=== PATIENT | female | born 1955 ===

== ENCOUNTER 2016-11-16 10:51 | Emergency (ER) | payer MEDICAID ==
[2016-11-16 11:08] VITALS: BMI 28.3
[2016-11-16 11:13] VITALS: TEMP 98.5; O2SAT 97
--- NOTE | 2016-11-16 11:46 | ED PDOC ---
Arrival/HPI - General Chief Complaint: Abdominal Pain Time Seen by Provider: 11/16/16 11:24 Historian: Patient - History of Present Illness Narrative History of Present Illness (Text): 11/16/16 11:35 A 61 year old female, whose past medical history includes Diverticulitis, Endoscopy/Colonoscopy, and RA, presents to the emergency room with complaints of abdominal pain for 3 months and left knee pain for over 1 month. Patient describes the abdominal pain as a sensation of "inflammation." Patient states that she takes Aspirin with no relief. Patient denies any chest pain, shortness of breath, fever, nausea, vomiting, diarrhea, or any other complaints. PMD: Dr. Valentin Time/Duration: > month (1 month) Symptom Onset: Sudden Symptom Course: Unchanged Quality: Pressure Severity Level: Moderate Activities at Onset: Light Context: Home Past Medical History - Provider Review Nursing Documentation Reviewed: Yes - Infectious Disease Hx of Infectious Diseases: None - Past Medical History Past Medical History: No Previous - Cardiac Hx Cardiac Disorders: Yes - Pulmonary Hx Respiratory Disorders: No - Neurological Hx Neurological Disorder: No - HEENT Hx HEENT Disorder: No - Renal Hx Renal Disorder: No - Endocrine/Metabolic Hx Endocrine Disorders: No - Hematological/Oncological Hx Blood Disorders: No - Integumentary Hx Dermatological Disorder: No - Musculoskeletal/Rheumatological Hx Musculoskeletal Disorders: Yes Hx Rheumatoid Arthritis: Yes - Gastrointestinal Hx Gastrointestinal Disorders: Yes Hx Diverticulitis: Yes - Genitourinary/Gynecological Hx Genitourinary Disorders: No - Psychiatric Hx Psychophysiologic Disorder: No Hx Substance Use: No - Surgical History Hx Section: Yes - Anesthesia Hx Anesthesia: Yes Hx Anesthesia Reactions: No Hx Malignant Hyperthermia: No - Suicidal Assessment Feels Threatened In Home Enviroment: No Family/Social History - Physician Review Nursing Documentation Reviewed: Yes Family/Social History: No Known Family HX Smoking Status: Never Smoked Hx Alcohol Use: No Hx Substance Use: No Hx Substance Use Treatment: No Allergies/Home Meds Allergies/Adverse Reactions: Allergies No Known Allergies Allergy (Verified 11/16/16 11:08) Home Medications: Home Meds Medication Instructions Recorded Confirmed Ergocalciferol (Vitamin D2) 11/16/16 [Vitamin D] Review of Systems - Physician Review All systems were reviewed & negative as marked: Yes - Review of Systems Respiratory: absent: SOB Cardiovascular: absent: Chest Pain Gastrointestinal: Abdominal Pain. absent: Diarrhea, Nausea, Vomiting Musculoskeletal: Other (Left knee pain) Physical Exam Vital Signs Reviewed: Yes Vital Signs Temp Pulse Resp BP Pulse Ox 11/16/16 17:00 64 18 133/68 97 11/16/16 15:39 66 18 135/71 97 11/16/16 14:12 69 18 138/75 97 11/16/16 12:25 75 18 142/79 97 11/16/16 11:08 98.5 F 79 16 146/85 97 Temperature: Afebrile Blood Pressure: Normal Pulse: Regular Respiratory Rate: Normal Appearance: Positive for: Well-Appearing, Non-Toxic, Comfortable Pain Distress: None Mental Status: Positive for: Alert and Oriented X 3 - Systems Exam Head: Present: Atraumatic, Normocephalic Conjunctiva: Present: Normal Mouth: Present: Moist Mucous Membranes Neck: Present: Normal Range of Motion Respiratory/Chest: Present: Clear to Auscultation, Good Air Exchange. No: Respiratory Distress, Accessory Muscle Use Cardiovascular: Present: Regular Rate and Rhythm, Normal S1, S2. No: Murmurs Abdomen: Present: Tenderness (Diffuse tenderness), Normal Bowel Sounds. No: Distention, Peritoneal Signs Upper Extremity: Present: Normal Inspection. No: Cyanosis, Edema Lower Extremity: Present: Normal Inspection, NORMAL PULSES, Normal ROM. No: Edema, CALF TENDERNESS, Tenderness, Swelling, Erythema, Deformity Neurological: Present: GCS=15, CN II-XII Intact, Speech Normal Skin: Present: Warm, Dry, Normal Color. No: Rashes Psychiatric: Present: Alert, Oriented x 3, Normal Insight, Normal Concentration Medical Decision Making ED Course and Treatment: 11/16/16 11:58 EKG: Ordered, reviewed, and independently interpreted the EKG. Rate : 70 BPM Rhythm : NSR Interpretation : Normal axis. No ischemia. 11/16/16 14:16 Left Knee X-ray Impression: As read by Dr. Lara, normal radiographs of the left knee. PROCEDURE: Left lower extremity venous US HISTORY: Leg pain and swelling. Evaluate for DVT. PHYSICIAN(S): Zackary Becerra MD. TECHNIQUE: Duplex sonography and color-flow Doppler with graded compression were used to evaluate the deep venous system of the left lower extremity. FINDINGS: The visualized deep venous system of the left lower extremity is sonographically normal and compressible. Normal wave forms and augmentation are seen. There is no sonographic evidence for deep venous thrombosis in the visualized segments of the left lower extremity. IMPRESSION: 1. No sonographic evidence for deep venous thrombosis in the visualized segments of the left lower extremity. Pt w chronic abd pain for months, no fever, no wbc count, benign exam. Disc plan for close f/u and rtr. - Lab Interpretations Lab Results: 11/16/16 12:20 11/16/16 12:20 Lab Results 11/16/16 12:20: WBC 5.1 D, RBC 4.34, Hgb 12.9, Hct 38.8, MCV 89.4, MCH 29.7, MCHC 33.2, RDW 13.6, Plt Count 243, MPV 10.5, Gran % 47.3 L, Lymph % (Auto) 40.0 H, Lassen % (Auto) 8.7 H, Eos % (Auto) 3.2, Baso % (Auto) 0.8, Gran # 2.40, Lymph # 2.0, Lassen # 0.4, Eos # 0.2, Baso # 0.04, Sodium 141, Potassium 3.9, Chloride 101, Carbon Dioxide 30, Anion Gap 14, BUN 14, Creatinine 0.6, Est GFR ( Amer) > 60, Est GFR (Non-Af Amer) > 60, Random Glucose 95, Calcium 9.6, Total Bilirubin 0.5, AST 27, ALT 59 H, Alkaline Phosphatase 95, Troponin I < 0.01, Total Protein 7.7, Albumin 4.3, Globulin 3.4, Albumin/Globulin Ratio 1.3, Lipase 97 11/16/16 12:00: Urine Color Yellow, Urine Appearance Clear, Urine pH 6.5, Ur Specific Lavina <= 1.005, Urine Protein Negative, Urine Glucose (UA) Negative, Urine Ketones Negative, Urine Blood Negative, Urine Nitrate Negative, Urine Bilirubin Negative, Urine Urobilinogen 0.2, Ur Leukocyte Esterase Negative I have reviewed the lab results: Yes - RAD Interpretation Radiology Orders: 11/16/16 11:44 KNEE LEFT 2 VIEWS (AP & LAT) [RAD] Stat 11/16/16 14:14 DUPLEX LOWER EXTRM VEIN LEFT [US] Stat - Medication Orders Current Medication Orders: Discontinued Medications Ketorolac Tromethamine (Toradol) 10 mg IVP STAT STA Stop: 11/16/16 11:45 Last Admin: 11/16/16 13:13 Dose: 10 MG IVP Administration Document 11/16/16 13:13 (Rec: 11/16/16 13:14 [id number]) Charges for Administration # of IVP Administrations 1 - Scribe Statement The provider has reviewed the documentation as recorded by the Scribe Juvenal Landers All medical record entries made by the Scribe were at my direction and personally dictated by me. I have reviewed the chart and agree that the record accurately reflects my personal performance of the history, physical exam, medical decision making, and the department course for this patient. I have also personally directed, reviewed, and agree with the discharge instructions and disposition. Disposition/Present on Arrival - Present on Arrival Any Indicators Present on Arrival: No History of DVT/PE: No History of Uncontrolled Diabetes: No Urinary Catheter: No History of Decub. Ulcer: No History Surgical Site Infection Following: None - Disposition Have Diagnosis and Disposition been Completed?: Yes Diagnosis: Abdominal pain, Knee pain Disposition: HOME/ ROUTINE Disposition Time: 16:52 Condition: STABLE Additional Instructions: Please follow up with your doctor this week. Return to the ER for any worsening symptoms or for any other concerns. Prescriptions: Naproxen [Naprosyn] 500 mg PO Q12H PRN #10 tablet PRN Reason: Pain, Moderate (4-7) Referrals: Helena Gracia MD [Primary Care Provider] - Follow up with primary
[2016-11-16 12:28] LABS: ADD MANUAL DIFF? NO
[2016-11-16 12:29] VITALS: RESP 18
[2016-11-16 12:30] LABS: PH,URINE 6.5 (4.7-8.0); URINE BILIRUBIN NEGATIVE (NEGATIVE); URINE BLOOD NEGATIVE (NEGATIVE); URINE GLUCOSE (UA) NEGATIVE (NEGATIVE); URINE KETONE NEGATIVE (NEGATIVE); URINE LEUKOCYTE ESTERASE NEGATIVE Leu/uL (NEGATIVE); URINE PROTEIN NEGATIVE mg/dL (<30 mg/dL); URINE UROBILINOGEN 0.2 E.U./dL (<1 E.U./dL)
[2016-11-16 12:31] LABS: URINE APPEARANCE CLEAR (CLEAR); URINE COLOR YELLOW (YELLOW)
[2016-11-16 12:31] LABS: BASO # 0.04 K/mm3 (0.0-2.0); BASO % 0.8 % (0.0-3.0); EOS # 0.2 (0.0-0.7); EOS % 3.2 % (1.5-5.0); GRAN % 47.3 % (50.0-68.0); HEMATOCRIT 38.8 % (36.0-48.0); MEAN CELL VOLUME 89.4 fL (80.0-105.0); MEAN CORPUSCULAR HEMOGLOBIN 29.7 pg (25.0-35.0); MEAN CORPUSCULAR HGB CONC 33.2 g/dl (31.0-37.0); MEAN PLATELET VOLUME 10.5 fl (7.0-11.0); MONO # 0.4 (0.1-0.6); MONO % 8.7 % (1.0-6.0); PLATELET COUNT 243 10^3/uL (120.0-450.0); RED CELL DISTRIBUTION WIDTH 13.6 % (11.5-14.5); WHITE BLOOD COUNT 5.1 10^3/ul (4.5-11.0)
[2016-11-16 12:42] LABS: ALB/GLOB RATIO 1.3 (1.1-1.8); ALKALINE PHOSPHATASE 95 U/L (38-133); ALT/SGPT 59 U/L (7-56); AST/SGOT 27 U/L (15-39); BILIRUBIN,TOTAL 0.5 mg/dL (0.2-1.3); BLOOD UREA NITROGEN 14 mg/dL (7-21); CALCIUM 9.6 mg/dL (8.4-10.5); CARBON DIOXIDE 30 mmol/L (21-33); CHLORIDE 101 mmol/L (98-107); GFR AFRICAN-AMERICAN > 60; GLUCOSE,RANDOM 95 mg/dL (70-110); LIPASE 97 U/L (23-300); POTASSIUM 3.9 mmol/L (3.6-5.0); SODIUM 141 mmol/L (132-148); TOTAL PROTEIN 7.7 g/dL (5.8-8.3)
[2016-11-16 12:53] LABS: TROPONIN I < 0.01 ng/mL
--- NOTE | 2016-11-16 13:13 | RAD ---
PROCEDURE: Left Knee Radiographs. HISTORY: Pain. COMPARISON: None. FINDINGS: BONES: Normal. No fracture. JOINTS: Normal. No osteoarthritis. JOINT EFFUSION: None. OTHER FINDINGS: None. IMPRESSION: Normal radiographs of the left knee.
--- NOTE | 2016-11-16 14:04 | CARD ---
APPROVED REPORT EKG Measurement Heart [id number] <Conclusion> Normal sinus rhythm NSSTW changes Mildly prolonged QTc.
--- NOTE | 2016-11-16 16:20 | US ---
PROCEDURE: Left lower extremity venous US HISTORY: Leg pain and swelling. Evaluate for DVT. PHYSICIAN(S): Zackary Becerra MD. TECHNIQUE: Duplex sonography and color-flow Doppler with graded compression were used to evaluate the deep venous system of the left lower extremity. FINDINGS: The visualized deep venous system of the left lower extremity is sonographically normal and compressible. Normal wave forms and augmentation are seen. There is no sonographic evidence for deep venous thrombosis in the visualized segments of the left lower extremity. IMPRESSION: 1. No sonographic evidence for deep venous thrombosis in the visualized segments of the left lower extremity.
[2016-11-16 17:22] VITALS: BP 133/68; PULSE 64
== END 2016-11-16 17:30 | disposition home or self-care (01) ==
LOC: ED 10:51
DX: R10.9 Unspecified abdominal pain (principal); M25.562 Pain in left knee; M06.9 Rheumatoid arthritis, unspecified
CPT/HCPCS: 73560; 80053; 81003; 83690; 84484; 85025; 93005; 93971; 96374; 99285; J1885

== ENCOUNTER 2017-03-26 12:50 | Emergency (ER) | payer MEDICAID ==
[2017-03-26 12:55] VITALS: BMI 28.7
[2017-03-26 12:58] VITALS: RESP 18; TEMP 98.7
[2017-03-26] MEDS ORDERED: Sodium Chloride 0.9% 1,000 ML IV STA (13:25)
--- NOTE | 2017-03-26 13:34 | ED PDOC ---
Arrival/HPI - General Chief Complaint: Abdominal Pain Time Seen by Provider: 03/26/17 13:13 Historian: Patient - History of Present Illness Narrative History of Present Illness (Text): 03/26/17 13:16 A 61 year old female, whose past medical history includes diverticulitis, presents to the emergency department complaining of abdominal pain for the past four days. Reports taking Tylenol, with minimal relief. Patient also reports neck pain and headache that developed today. Notes nausea, hematochezia and appetite changes, but denies any fever, vomiting or any other complaints at this time. PMD: Maria Del Carmen Herrera Time/Duration: < week Symptom Onset: Sudden Symptom Course: Unchanged Activities at Onset: Rest Context: Home Past Medical History - Provider Review Nursing Documentation Reviewed: Yes - Infectious Disease Hx of Infectious Diseases: None - Reproductive Menopause: Yes - Musculoskeletal/Rheumatological Hx Arthritis: Yes - Gastrointestinal Hx Diverticulitis: Yes - Psychiatric Hx Substance Use: No - Surgical History Hx Section: Yes (x2) Other/Comment: Colonoscopy - Anesthesia Hx Anesthesia: Yes Hx Anesthesia Reactions: No Hx Malignant Hyperthermia: No Family/Social History - Physician Review Nursing Documentation Reviewed: Yes Family/Social History: No Known Family HX Smoking Status: Never Smoked Hx Alcohol Use: No Hx Substance Use: No Allergies/Home Meds Allergies/Adverse Reactions: Allergies No Known Allergies Allergy (Verified 11/22/16 11:16) Home Medications: Home Meds Medication Instructions Recorded Confirmed Cholecalciferol [Vitamin D 1000 IU] 1 tab PO DAILY 03/26/17 03/26/17 Review of Systems - Physician Review All systems were reviewed & negative as marked: Yes - Review of Systems Constitutional: absent: Fevers Gastrointestinal: Abdominal Pain, Nausea, Appetite Changes, Hematochezia. absent: Vomiting Musculoskeletal: Neck Pain Neurological: Headache Physical Exam Vital Signs Reviewed: Yes Vital Signs Temp Pulse Resp BP Pulse Ox 03/26/17 15:05 68 18 124/75 97 03/26/17 14:10 71 18 126/78 97 03/26/17 12:58 98.7 F 76 18 128/89 96 Temperature: Afebrile Blood Pressure: Normal Pulse: Regular Respiratory Rate: Normal Appearance: Positive for: Well-Appearing, Non-Toxic, Comfortable Pain Distress: None Mental Status: Positive for: Alert and Oriented X 3 - Systems Exam Head: Present: Atraumatic, Normocephalic Pupils: Present: PERRL Extroacular Muscles: Present: EOMI Conjunctiva: Present: Normal Mouth: Present: Moist Mucous Membranes Neck: Present: Normal Range of Motion Respiratory/Chest: Present: Clear to Auscultation, Good Air Exchange. No: Respiratory Distress, Accessory Muscle Use Cardiovascular: Present: Regular Rate and Rhythm, Normal S1, S2. No: Murmurs Abdomen: Present: Tenderness (diffuse), Normal Bowel Sounds. No: Distention, Peritoneal Signs Back: Present: Normal Inspection Upper Extremity: Present: Normal Inspection. No: Cyanosis, Edema Lower Extremity: Present: Normal Inspection. No: Edema Neurological: Present: GCS=15, CN II-XII Intact, Speech Normal Skin: Present: Warm, Dry, Normal Color. No: Rashes Psychiatric: Present: Alert, Oriented x 3, Normal Insight, Normal Concentration Medical Decision Making ED Course and Treatment: 03/26/17 14:55 CT Abdomen and Pelvis with contrast Creator : Dima Mesa MD FINDINGS: LOWER THORAX: Unremarkable. LIVER: Unremarkable. No gross lesion or ductal dilatation. GALLBLADDER AND BILE DUCTS: Unremarkable. PANCREAS: Unremarkable. No gross lesion or ductal dilatation. SPLEEN: Unremarkable. ADRENALS: Unremarkable. No mass. KIDNEYS AND URETERS: Unremarkable. No hydronephrosis. No solid mass. VASCULATURE: Unremarkable. No aortic aneurysm. BOWEL: There is diverticulosis in the sigmoid and descending colon. There is some mural thickening. There is no inflammation to suggest acute diverticulitis. APPENDIX: Normal appendix. PERITONEUM: Unremarkable. No free fluid. No free air. LYMPH NODES: Unremarkable. No enlarged lymph nodes. BLADDER: Unremarkable. REPRODUCTIVE: Unremarkable. BONES: No acute fracture. IMPRESSION: Diverticulosis in the descending and sigmoid colon without evidence of diverticulitis. No acute intra-abdominal findings 03/26/17 14:57 Patient is resting comfortably, appears well and in no acute distress. I have discussed the results and plan with the patient, who expresses understanding. Patient in agreement with plan to be discharged home. Patient is stable for discharge. Patient was instructed to follow up with physician or return if symptoms worsen or new concerning symptoms arise. - Lab Interpretations Lab Results: 03/26/17 13:50 03/26/17 13:50 Lab Results 03/26/17 13:50: Sodium 141, Potassium 3.6, Chloride 104, Carbon Dioxide 27, Anion Gap 14, BUN 9, Creatinine 0.7, Est GFR ( Amer) > 60, Est GFR (Non- Af Amer) > 60, Random Glucose 89, Calcium 8.7, Total Bilirubin 0.4, AST 26, ALT 39, Alkaline Phosphatase 82, Total Protein 6.8, Albumin 4.2, Globulin 2.6, Albumin/Globulin Ratio 1.6, Lipase 56 03/26/17 13:50: Urine Color Yellow, Urine Appearance Clear, Urine pH 6.0, Ur Specific [place] 1.020, Urine Protein Negative, Urine Glucose (UA) Negative, Urine Ketones Negative, Urine Blood Negative, Urine Nitrate Negative, Urine Bilirubin Negative, Urine Urobilinogen 0.2, Ur Leukocyte Esterase Negative 03/26/17 13:50: WBC 6.6, RBC 4.35, Hgb 13.0, Hct 38.4, MCV 88.3, MCH 29.9, MCHC 33.9, RDW 13.8, Plt Count 249, MPV 10.2, Gran % 58.3, Lymph % (Auto) 30.6, [place] % (Auto) 8.4 H, Eos % (Auto) 2.1, Baso % (Auto) 0.6, Gran # 3.82, Lymph # 2.0, [place] # 0.6, Eos # 0.1, Baso # 0.04 I have reviewed the lab results: Yes - RAD Interpretation Radiology Orders: 03/26/17 13:25 ABD & PELVIS IV CONTRAST ONLY [CT] Stat - Medication Orders Current Medication Orders: Discontinued Medications Sodium Chloride (Sodium Chloride 0.9%) 1,000 mls @ 999 mls/hr IV .Q1H1M STA Stop: 03/26/17 14:25 Last Admin: 03/26/17 13:55 Dose: 999 mls/hr Iohexol (Omnipaque 350 100 Ml) Confirm Administered Dose 350 mg .ROUTE .STK-MED ONE Stop: 03/26/17 14:20 Ketorolac Tromethamine (Toradol) 10 mg IVP STAT STA Stop: 03/26/17 13:26 Last Admin: 03/26/17 13:55 Dose: 10 mg Ondansetron HCl (Zofran Inj) 4 mg IVP ONCE ONE Stop: 03/26/17 13:26 Last Admin: 03/26/17 13:56 Dose: 4 mg - Scribe Statement The provider has reviewed the documentation as recorded by the Alethae Garcia Provider Alethea Attestation: All medical record entries made by the Alethea were at my direction and personally dictated by me. I have reviewed the chart and agree that the record accurately reflects my personal performance of the history, physical exam, medical decision making, and the department course for this patient. I have also personally directed, reviewed, and agree with the discharge instructions and disposition. Disposition/Present on Arrival - Present on Arrival Any Indicators Present on Arrival: No History of DVT/PE: No History of Uncontrolled Diabetes: No Urinary Catheter: No History of Decub. Ulcer: No History Surgical Site Infection Following: None - Disposition Have Diagnosis and Disposition been Completed?: Yes Diagnosis: Abdominal pain Disposition: HOME/ ROUTINE Disposition Time: 14:58 Condition: STABLE Discharge Instructions (ExitCare): Acute Abdominal Pain (ED) Additional Instructions: Please follow up with your doctor. Return to the ER for any worsening symptoms or for any other concerns. Prescriptions: Ondansetron ODT [Zofran ODT] 4 mg PO Q4H PRN #10 odt PRN Reason: Nausea/Vomiting Referrals: Fabian Palacios MD [Primary Care Provider] - Follow up with primary Forms: [employer] (Arabic)
[2017-03-26 14:04] LABS: BASO # 0.04 K/mm3 (0.0-2.0); BASO % 0.6 % (0.0-3.0); EOS # 0.1 (0.0-0.7); EOS % 2.1 % (1.5-5.0); GRAN # 3.82 (1.4-6.5); GRAN % 58.3 % (50.0-68.0); HEMATOCRIT 38.4 % (36.0-48.0); LYMPH % 30.6 % (22.0-35.0); MEAN CELL VOLUME 88.3 fl (80.0-105.0); MEAN CORPUSCULAR HEMOGLOBIN 29.9 pg (25.0-35.0); MEAN CORPUSCULAR HGB CONC 33.9 g/dl (31.0-37.0); MEAN PLATELET VOLUME 10.2 fl (7.0-11.0); MONO # 0.6 (0.1-0.6); MONO % 8.4 % (1.0-6.0); RED CELL DISTRIBUTION WIDTH 13.8 % (11.5-14.5); URINE BILIRUBIN NEGATIVE (NEGATIVE); URINE BLOOD NEGATIVE (NEGATIVE); URINE GLUCOSE (UA) NEGATIVE (NEGATIVE); URINE KETONE NEGATIVE (NEGATIVE); URINE LEUKOCYTE ESTERASE NEGATIVE Leu/uL (NEGATIVE); URINE PROTEIN NEGATIVE mg/dL (<30 mg/dL); URINE UROBILINOGEN 0.2 E.U./dL (<1 E.U./dL); WHITE BLOOD COUNT 6.6 10^3/ul (4.5-11.0)
[2017-03-26 14:05] LABS: URINE APPEARANCE CLEAR (CLEAR); URINE COLOR YELLOW (YELLOW)
[2017-03-26 14:11] VITALS: O2SAT 97
[2017-03-26 14:13] LABS: ALB/GLOB RATIO 1.6 (1.1-1.8); ALKALINE PHOSPHATASE 82 U/L (38-133); ALT/SGPT 39 U/L (7-56); AST/SGOT 26 U/L (15-39); BILIRUBIN,TOTAL 0.4 mg/dL (0.2-1.3); BLOOD UREA NITROGEN 9 mg/dL (7-21); CALCIUM 8.7 mg/dL (8.4-10.5); CARBON DIOXIDE 27 mmol/L (21-33); CHLORIDE 104 mmol/L (98-107); GFR AFRICAN-AMERICAN > 60; GLUCOSE,RANDOM 89 mg/dL (70-110); LIPASE 56 U/L (23-300); POTASSIUM 3.6 mmol/L (3.6-5.0); SODIUM 141 mmol/L (132-148); TOTAL PROTEIN 6.8 g/dL (5.8-8.3)
[2017-03-26] MEDS ORDERED: Iohexol 350 MG/100 ML VIAL ONE (14:19)
--- NOTE | 2017-03-26 14:52 | CT ---
PROCEDURE: CT Abdomen and Pelvis with contrast HISTORY: abdominal pain COMPARISON: 10/19/2016 CT TECHNIQUE: Contrast dose: Radiation dose: Total exam DLP = 615 mGy-cm. This CT exam was performed using one or more of the following dose reduction techniques: Automated exposure control, adjustment of the mA and/or kV according to patient size, and/or use of iterative reconstruction technique. FINDINGS: LOWER THORAX: Unremarkable. LIVER: Unremarkable. No gross lesion or ductal dilatation. GALLBLADDER AND BILE DUCTS: Unremarkable. PANCREAS: Unremarkable. No gross lesion or ductal dilatation. SPLEEN: Unremarkable. ADRENALS: Unremarkable. No mass. KIDNEYS AND URETERS: Unremarkable. No hydronephrosis. No solid mass. VASCULATURE: Unremarkable. No aortic aneurysm. BOWEL: There is diverticulosis in the sigmoid and descending colon. There is some mural thickening. There is no inflammation to suggest acute diverticulitis. APPENDIX: Normal appendix. PERITONEUM: Unremarkable. No free fluid. No free air. LYMPH NODES: Unremarkable. No enlarged lymph nodes. BLADDER: Unremarkable. REPRODUCTIVE: Unremarkable. BONES: No acute fracture. OTHER FINDINGS: None. IMPRESSION: Diverticulosis in the descending and sigmoid colon without evidence of diverticulitis. No acute intra-abdominal findings
[2017-03-26 15:06] VITALS: BP 124/75; PULSE 68
== END 2017-03-26 15:15 | disposition home or self-care (01) ==
LOC: ED 12:50
DX: R10.9 Unspecified abdominal pain (principal)
CPT/HCPCS: 74177; 80053; 81003; 83690; 85025; 96361; 96374; 96375; 99284; J1885; J2405; J7040; Q9967

== ENCOUNTER 2017-04-16 19:53 | Emergency (ER) | payer MEDICAID ==
[2017-04-16 19:55] VITALS: BMI 29.5
[2017-04-16 20:00] VITALS: BP 142/87; PULSE 81; RESP 18; TEMP 98.7; O2SAT 96
--- NOTE | 2017-04-16 21:24 | ED PDOC ---
Arrival/HPI - General Chief Complaint: Abnormal Skin Integrity Time Seen by Provider: 04/16/17 20:24 Historian: Patient - History of Present Illness Narrative History of Present Illness (Text): 04/16/17 20:36 A 61 year old female, whose past medical history includes diverticulitis, presents to the emergency department complaining of diffused rashes for 4 days. Patient reports she is uncertain if she was exposed to anything new that may have caused the rashes. Patient notes experiencing itchiness, but denies of any fever, vomiting, abdominal pain, or any other complaints. PMD: Dr. Fabian Palacios Time/Duration: < week (4 days) Past Medical History - Provider Review Nursing Documentation Reviewed: Yes - Infectious Disease Hx of Infectious Diseases: None - Reproductive Menopause: Yes - Cardiac Hx Hypertension: Yes - Musculoskeletal/Rheumatological Hx Arthritis: Yes - Gastrointestinal Hx Diverticulitis: Yes - Psychiatric Hx Substance Use: No - Surgical History Hx Section: Yes (x2) Other/Comment: Colonoscopy - Anesthesia Hx Anesthesia: Yes Hx Anesthesia Reactions: No Hx Malignant Hyperthermia: No Family/Social History - Physician Review Nursing Documentation Reviewed: Yes Family/Social History: No Known Family HX Smoking Status: Never Smoked Hx Alcohol Use: No Hx Substance Use: No Allergies/Home Meds Allergies/Adverse Reactions: Allergies No Known Allergies Allergy (Verified 11/22/16 11:16) Home Medications: Home Meds Medication Instructions Recorded Confirmed Cholecalciferol [Vitamin D 1000 IU] 1 tab PO DAILY 03/26/17 04/16/17 Review of Systems - Physician Review All systems were reviewed & negative as marked: Yes - Review of Systems Constitutional: absent: Fevers Gastrointestinal: absent: Abdominal Pain, Vomiting Skin: Rash (bilateral arms and legs), Pruritis Physical Exam Vital Signs Reviewed: Yes Vital Signs Temp Pulse Resp BP Pulse Ox 04/16/17 19:53 98.7 F 81 18 142/87 96 Temperature: Afebrile Blood Pressure: Normal Pulse: Regular Respiratory Rate: Normal Appearance: Positive for: Well-Appearing Pain Distress: None Mental Status: Positive for: Alert and Oriented X 3 - Systems Exam Head: Present: Atraumatic, Normocephalic Pupils: Present: PERRL Extroacular Muscles: Present: EOMI Conjunctiva: Present: Normal Mouth: Present: Moist Mucous Membranes Neck: Present: Normal Range of Motion Respiratory/Chest: Present: Clear to Auscultation, Good Air Exchange. No: Respiratory Distress, Accessory Muscle Use Cardiovascular: Present: Regular Rate and Rhythm, Normal S1, S2. No: Murmurs Abdomen: Present: Normal Bowel Sounds. No: Tenderness, Distention, Peritoneal Signs Back: Present: Normal Inspection Upper Extremity: Present: Normal Inspection. No: Cyanosis, Edema Lower Extremity: Present: Normal Inspection. No: Edema Neurological: Present: GCS=15, CN II-XII Intact, Speech Normal Skin: Present: Other (lesions along both arms and legs) Psychiatric: Present: Alert, Oriented x 3, Normal Insight, Normal Concentration Medical Decision Making ED Course and Treatment: 04/16/17 20:44 Impression: 61 year old female with pruritic rashes bilateral arms and legs. Physical exam shows lesion along both arms and legs. Plan: -- Decadron -- Reassess and disposition Prior Visits: Notes and results from previous visits were reviewed. On 03/26/2017 patient came in complaining of abdominal pain. Patient was discharged home. Progress Notes: - Medication Orders Current Medication Orders: Discontinued Medications Dexamethasone (Decadron Inj) 10 mg IM STAT STA Stop: 04/16/17 20:43 Last Admin: 04/16/17 21:09 Dose: 10 mg - Scribe Statement The provider has reviewed the documentation as recorded by the Scribe Disposition/Present on Arrival - Present on Arrival Any Indicators Present on Arrival: No History of DVT/PE: No History of Uncontrolled Diabetes: No Urinary Catheter: No History of Decub. Ulcer: No History Surgical Site Infection Following: None - Disposition Have Diagnosis and Disposition been Completed?: Yes Diagnosis: Dermatitis Disposition: HOME/ ROUTINE Disposition Time: 20:30 Condition: GOOD Discharge Instructions (ExitCare): Dermatitis (ED) Additional Instructions: Thank you for letting us take care of you today. Your provider was Dr. Boucher. You were treated for dermatitis. The emergency medical care you received today was directed at your acute symptoms. If you were prescribed any medication, please fill it and take as directed. It may take several days for your symptoms to resolve. Return to the Emergency Department if your symptoms worsen, do not improve, or if you have any other problems. Please contact your doctor or call one of the physicians/clinics you have been referred to that are listed on the Patient Visit Information form that is included in your discharge packet. Bring any paperwork you were given at discharge with you along with any medications you are taking to your follow up visit. Our treatment cannot replace ongoing medical care by a primary care provider (PCP) outside of the emergency department. Thank you for allowing the [facility] team to be part of your care today. Follow up with your doctor in 2-3 days for re-evaluation and further management. Prescriptions: predniSONE [Prednisone] 40 mg PO DAILY #10 tab Referrals: Fabian Palacios MD [Primary Care Provider] - Follow up with primary
== END 2017-04-16 21:36 | disposition home or self-care (01) ==
LOC: ED 19:53
DX: L30.9 Dermatitis, unspecified (principal)
CPT/HCPCS: 96372; 99281; J1100

== ENCOUNTER 2017-06-10 20:25 | Emergency (ER) | payer MEDICAID ==
[2017-06-10 20:38] VITALS: BMI 29.2
[2017-06-10] MEDS ORDERED: Sodium Chloride 0.9% 1,000 ML IV STA (21:01)
[2017-06-10] MEDS ORDERED: Iohexol 240 (50 ml) ONE (21:22)
[2017-06-10 22:21] LABS: URINE BILIRUBIN NEGATIVE (NEGATIVE); URINE BLOOD NEGATIVE (NEGATIVE); URINE GLUCOSE (UA) NEGATIVE (NEGATIVE); URINE KETONE TRACE mg/dL (NEGATIVE); URINE LEUKOCYTE ESTERASE NEGATIVE Leu/uL (NEGATIVE); URINE PROTEIN NEGATIVE mg/dL (<30 mg/dL)
[2017-06-10 22:23] LABS: URINE APPEARANCE CLEAR (CLEAR); URINE COLOR YELLOW (YELLOW)
[2017-06-10 22:38] LABS: ALB/GLOB RATIO 1.4 (1.1-1.8); ALKALINE PHOSPHATASE 90 U/L (38-126); ALT/SGPT 32 U/L (7-56); AST/SGOT 30 U/L (14-36); BILIRUBIN,TOTAL 0.6 mg/dL (0.2-1.3); BLOOD UREA NITROGEN 17 mg/dL (7-21); CALCIUM 9.2 mg/dL (8.4-10.5); CARBON DIOXIDE 30 mmol/L (21-33); CHLORIDE 103 mmol/L (98-107); GFR AFRICAN-AMERICAN > 60; GLUCOSE,RANDOM 106 mg/dL (70-110); LIPASE 67 U/L (23-300); POTASSIUM 3.9 mmol/L (3.6-5.0); SODIUM 142 mmol/L (132-148); TOTAL PROTEIN 7.1 g/dL (5.8-8.3)
[2017-06-10 22:52] LABS: BASO # 0.02 K/mm3 (0.0-2.0); BASO % 0.3 % (0.0-3.0); EOS # 0.2 (0.0-0.7); EOS % 3.6 % (1.5-5.0); GRAN # 3.16 (1.4-6.5); GRAN % 51.3 % (50.0-68.0); HEMATOCRIT 39.5 % (36.0-48.0); LYMPH # 2.1 (1.2-3.4); LYMPH % 33.9 % (22.0-35.0); MEAN CELL VOLUME 90.6 fl (80.0-105.0); MEAN CORPUSCULAR HEMOGLOBIN 29.8 pg (25.0-35.0); MEAN CORPUSCULAR HGB CONC 32.9 g/dl (31.0-37.0); MEAN PLATELET VOLUME 10.8 fl (7.0-11.0); MONO # 0.7 (0.1-0.6); MONO % 10.9 % (1.0-6.0); WHITE BLOOD COUNT 6.2 10^3/ul (4.5-11.0)
[2017-06-10] MEDS ORDERED: Iohexol 350 MG/100 ML VIAL ONE (23:25)
--- NOTE | 2017-06-10 23:50 | ED PDOC ---
Arrival/HPI - General Chief Complaint: Abdominal Pain Time Seen by Provider: 06/10/17 20:46 Historian: Patient - History of Present Illness Narrative History of Present Illness (Text): 06/10/17 21:10 A 61 year old female, whose past medical history includes diverticulitis, presents to the emergency department complaining of mild abdominal pain for a week. Patient also reports several episodes of watery, nonbloody diarrhea. Denies any nausea, vomiting, fever, change in PO intake, dysuria, hematuria or any other complaints at this time. PMD: Dr. Palacios Time/Duration: 1 week Symptom Onset: Sudden Symptom Course: Unchanged Activities at Onset: Rest Context: Home Past Medical History - Provider Review Nursing Documentation Reviewed: Yes - Infectious Disease Hx of Infectious Diseases: None - Past Medical History Past Medical History: No Previous - Cardiac Hx Hypertension: Yes - Pulmonary Hx Respiratory Disorders: No - Neurological Hx Neurological Disorder: No - HEENT Hx HEENT Disorder: No - Renal Hx Renal Disorder: No - Endocrine/Metabolic Hx Endocrine Disorders: No - Hematological/Oncological Hx Blood Disorders: No - Integumentary Hx Dermatological Disorder: No - Musculoskeletal/Rheumatological Hx Arthritis: Yes - Gastrointestinal Hx Diverticulitis: Yes - Genitourinary/Gynecological Hx Genitourinary Disorders: No - Psychiatric Hx Psychophysiologic Disorder: No Hx Substance Use: No - Surgical History Hx Section: Yes (x2) Other/Comment: Colonoscopy - Anesthesia Hx Anesthesia: Yes Hx Anesthesia Reactions: No Hx Malignant Hyperthermia: No - Suicidal Assessment Feels Threatened In Home Enviroment: No Family/Social History - Physician Review Nursing Documentation Reviewed: Yes Family/Social History: No Known Family HX Smoking Status: Never Smoked Hx Alcohol Use: No Hx Substance Use: No Hx Substance Use Treatment: No Allergies/Home Meds Allergies/Adverse Reactions: Allergies No Known Allergies Allergy (Verified 06/10/17 20:38) Home Medications: Home Meds Medication Instructions Recorded Confirmed Ergocalciferol (Vitamin D2) 11/16/16 [Vitamin D] Cholecalciferol [Vitamin D 1000 IU] 1 tab PO DAILY 03/26/17 04/16/17 Review of Systems - Physician Review All systems were reviewed & negative as marked: Yes - Review of Systems Constitutional: absent: Fevers Gastrointestinal: Abdominal Pain, Diarrhea (watery, nonbloody). absent: Nausea , Vomiting Genitourinary Female: absent: Dysuria, Hematuria Physical Exam Vital Signs Reviewed: Yes Vital Signs Temp Pulse Resp BP Pulse Ox 06/11/17 02:14 18 98 06/11/17 01:49 98.1 F 80 17 119/89 99 06/10/17 20:38 98.2 F 85 17 116/75 98 06/10/17 20:37 98.2 F 85 17 116/75 98 Temperature: Afebrile Blood Pressure: Normal Pulse: Regular Respiratory Rate: Normal Appearance: Positive for: Well-Appearing, Non-Toxic, Comfortable Pain Distress: None Mental Status: Positive for: Alert and Oriented X 3 - Systems Exam Head: Present: Atraumatic, Normocephalic Pupils: Present: PERRL Extroacular Muscles: Present: EOMI Conjunctiva: Present: Normal Mouth: Present: Moist Mucous Membranes Neck: Present: Normal Range of Motion Respiratory/Chest: Present: Clear to Auscultation, Good Air Exchange. No: Respiratory Distress, Accessory Muscle Use Cardiovascular: Present: Regular Rate and Rhythm, Normal S1, S2. No: Murmurs Abdomen: Present: Tenderness (lower abdominal), Normal Bowel Sounds. No: Distention, Peritoneal Signs Back: Present: Normal Inspection Upper Extremity: Present: Normal Inspection. No: Cyanosis, Edema Lower Extremity: Present: Normal Inspection. No: Edema Neurological: Present: GCS=15, CN II-XII Intact, Speech Normal Skin: Present: Warm, Dry, Normal Color. No: Rashes Psychiatric: Present: Alert, Oriented x 3, Normal Insight, Normal Concentration Medical Decision Making ED Course and Treatment: 06/10/17 21:10 Impression: A 61 year old female with abdominal pain and diarrhea. Plan: -- CT abd/pelvis -- labs -- Urinalysis -- Pepcid, Zofran, IV fluids -- Reassess and disposition Prior Visits: Notes and results from previous visits were reviewed. Patient last reported to the emergency department on 04/16/17 for evaluation of diffuse rashes. Progress Notes: 06/11/17 01:23 Addendum created by Carmenza Stephenson MD on 06/11/2017 1:21 AM Eastern Time ([place] & [place]) CRITICAL RESULT: The study was personally discussed on the telephone with [Tavares Wolfe] on 06/11/2017 1:19 AM EDT. The results were understood and acknowledged. Initial Report created on 06/11/2017 1:08 AM Eastern Time ( & [place]) CT Abdomen and Pelvis With Intravenous Contrast IMPRESSION: 1. There is circumferential thickening of splenic flexure is seen on image 44 series 2 and on image 69 series 601 which can represent peristalsis versus underdistention. However an early annular constricting lesion secondary to colon cancer cannot be excluded.Correlation with clinical evaluation and further workup or followup as recommended by patient's clinical data. 2. There is thickening and inflammatory change around the mid left descending colon seen on image 87 through 94 series 2 representing early acute diverticulitis. No perforation or abscess. 3.Partially contracted gallbladder with mild gallbladder wall prominence and pericholecystic infiltration.If clinically warranted, a right upper quadrant ultrasound and correlation with LFTs may be helpful for further assessment. Dictated and Authenticated by: Carmenza Stephenson MD 06/11/2017 1:08 AM [facility] ([place] & [place]) 06/11/17 01:44 On re-evaluation, patient feels better and is in no acute distress. I have discussed the results and plan with the patient, who expresses understanding. Patient in agreement with plan to be discharged home. Patient is stable for discharge. Patient was instructed to follow up with physician or return if symptoms worsen or new concerning symptoms arise. - Lab Interpretations Lab Results: 06/10/17 22:15 06/10/17 22:15 Lab Results 06/10/17 22:15: Sodium 142, Potassium 3.9, Chloride 103, Carbon Dioxide 30, Anion Gap 13, BUN 17, Creatinine 0.8, Est GFR ( Amer) > 60, Est GFR (Non- Af Amer) > 60, Random Glucose 106, Calcium 9.2, Total Bilirubin 0.6, AST 30, ALT 32, Alkaline Phosphatase 90, Total Protein 7.1, Albumin 4.2, Globulin 2.9, Albumin/Globulin Ratio 1.4, Lipase 67 06/10/17 22:15: WBC 6.2, RBC 4.36, Hgb 13.0, Hct 39.5, MCV 90.6, MCH 29.8, MCHC 32.9, RDW 14.0, Plt Count 249, MPV 10.8, Gran % 51.3, Lymph % (Auto) 33.9, Taney % (Auto) 10.9 H, Eos % (Auto) 3.6, Baso % (Auto) 0.3, Gran # 3.16, Lymph # 2.1, Taney # 0.7 H, Eos # 0.2, Baso # 0.02 06/10/17 21:45: Urine Color Yellow, Urine Appearance Clear, Urine pH 6.0, Ur Specific [place] >= 1.030, Urine Protein Negative, Urine Glucose (UA) Negative, Urine Ketones Trace H, Urine Blood Negative, Urine Nitrate Negative, Urine Bilirubin Negative, Urine Urobilinogen 1.0 H, Ur Leukocyte Esterase Negative I have reviewed the lab results: Yes - RAD Interpretation Radiology Orders: 06/10/17 21:01 ABD PELVIS PO & IV CONTRAST [CT] Stat - Medication Orders Current Medication Orders: Discontinued Medications Ciprofloxacin (Cipro) 500 mg PO STAT STA PRN Reason: Protocol Stop: 06/11/17 01:45 Last Admin: 06/11/17 02:13 Dose: 500 mg Famotidine (Pepcid) 20 mg IVP STAT STA Stop: 06/10/17 21:02 Last Admin: 06/10/17 22:22 Dose: 20 mg IVP Administration Document 06/10/17 22:22 [email or web address] (Rec: 06/10/17 22:22 [email or web address] [id number]) Charges for Administration # of IVP Administrations 1 Sodium Chloride (Sodium Chloride 0.9%) 1,000 mls @ 100 mls/hr IV .Q10H STA Stop: 06/11/17 07:00 Last Admin: 06/10/17 22:22 Dose: 100 mls/hr eMAR Start Stop Document 06/10/17 22:22 [email or web address] (Rec: 06/10/17 22:22 [email or web address] [id number]) Intravenous Solution Start Date 06/10/17 Start Time 22:22 End Date 06/10/17 Metronidazole (Flagyl) 500 mg PO STAT STA PRN Reason: Protocol Stop: 06/11/17 01:45 Last Admin: 06/11/17 02:13 Dose: 500 mg Ondansetron HCl (Zofran Inj) 4 mg IVP STAT STA Stop: 06/10/17 21:02 Last Admin: 06/10/17 22:22 Dose: 4 mg IVP Administration Document 06/10/17 22:22 [email or web address] (Rec: 06/10/17 22:22 [email or web address] [id number]) Charges for Administration # of IVP Administrations 1 - Scribe Statement The provider has reviewed the documentation as recorded by the Scribe Sukhwinder Garcia All medical record entries made by the Scribe were at my direction and personally dictated by me. I have reviewed the chart and agree that the record accurately reflects my personal performance of the history, physical exam, medical decision making, and the department course for this patient. I have also personally directed, reviewed, and agree with the discharge instructions and disposition. Disposition/Present on Arrival - Present on Arrival Any Indicators Present on Arrival: No History of DVT/PE: No History of Uncontrolled Diabetes: No Urinary Catheter: No History of Decub. Ulcer: No History Surgical Site Infection Following: None - Disposition Have Diagnosis and Disposition been Completed?: Yes Diagnosis: Diverticulitis Disposition: HOME/ ROUTINE Disposition Time: 01:20 Condition: GOOD Discharge Instructions (ExitCare): Diverticulitis (ED) Additional Instructions: Thank you for letting us take care of you today. Your provider was Dr. Boucher. The emergency medical care you received today was directed at your acute symptoms. If you were prescribed any medication, please fill it and take as directed. It may take several days for your symptoms to resolve. Return to the Emergency Department if your symptoms worsen, do not improve, or if you have any other problems. Please contact your doctor or call one of the physicians/clinics you have been referred to that are listed on the Patient Visit Information form that is included in your discharge packet. Bring any paperwork you were given at discharge with you along with any medications you are taking to your follow up visit. Our treatment cannot replace ongoing medical care by a primary care provider (PCP) outside of the emergency department. Thank you for allowing the [facility] team to be part of your care today. Call your doctor tomorrow for a follow up appointment in the next 3-5 days. Take antibiotics as directed. Prescriptions: Ciprofloxacin [Cipro] 500 mg PO BID #14 tab metroNIDAZOLE [Flagyl] 500 mg PO Q8 #21 tab Referrals: Fabian Palacios MD [Primary Care Provider] - Follow up with primary Forms: [facility] (Nepali)
--- NOTE | 2017-06-11 01:09 | CT ---
EXAM: CT Abdomen and Pelvis With Intravenous Contrast CLINICAL HISTORY: 61 years old, female; Pain; Abdominal pain; Generalized; Additional info: Lower abdominal pain - h/o diverticulitis TECHNIQUE: Axial computed tomography images of the abdomen and pelvis with intravenous contrast. All CT scans at this facility use one or more dose reduction techniques, viz.: automated exposure control; ma/kV adjustment per patient size (including targeted exams where dose is matched to indication; i.e. head); or iterative reconstruction technique. 1086 images are submitted. 3 sets of Sagittal and coronal images are submitted in soft tissue and lung windows. Oral contrast was administered. Overlying clothing artifacts. MIP reconstruction images are submitted in lung windows. Coronal and sagittal reformatted images were created and reviewed. CONTRAST: 93 mL of OMNI 350 administered intravenously. COMPARISON: CT - ABD PELVIS IV CONTRAST ONLY 2015-12-01 17:49 FINDINGS: Lower thorax: No acute findings. ABDOMEN: Liver: Fatty liver. Gallbladder and bile ducts: Partially contracted gallbladder with mild gallbladder wall prominence and pericholecystic infiltration.If clinically warranted, a right upper quadrant ultrasound and correlation with LFTs may be helpful for further assessment. Pancreas: Unremarkable. No mass. No ductal dilation. Spleen: Unremarkable. No splenomegaly. Adrenals: Unremarkable. No mass. Kidneys and ureters: Unremarkable. No solid mass. No hydronephrosis. Stomach and bowel: There is circumferential thickening of splenic flexure is seen on image 44 series 2 and on image 69 series 601 which can represent peristalsis versus underdistention. However an early annular constricting lesion secondary to colon cancer cannot be excluded.Correlation with clinical evaluation and further workup or followup as recommended by patient's clinical data. There is thickening and inflammatory change around the mid left descending colon seen on image 87 through 94 series 2 representing early acute diverticulitis. Diverticulosis. Nonspecific gastric thickening likely due to under distention. Correlation with clinical data is recommended if gastritis is suspected. Appendix: Normal appendix. There is intraluminal contrast versus appendicolith. PELVIS: Bladder: Partially distended bladder. Reproductive: Uterus is anteriorly displaced likely due to adhesions versus uterine suspension. ABDOMEN and PELVIS: Intraperitoneal space: Unremarkable. No free air. No significant fluid collection. Bones/joints: No acute fracture. No dislocation. Soft tissues: There is a fat-containing umbilical hernia. There is radiopaque labial body piercing ring. Vasculature: Pelvic phleboliths. No abdominal aortic aneurysm. Lymph nodes: Unremarkable. No enlarged lymph nodes. IMPRESSION: 1. There is circumferential thickening of splenic flexure is seen on image 44 series 2 and on image 69 series 601 which can represent peristalsis versus underdistention. However an early annular constricting lesion secondary to colon cancer cannot be excluded.Correlation with clinical evaluation and further workup or followup as recommended by patient's clinical data. 2. There is thickening and inflammatory change around the mid left descending colon seen on image 87 through 94 series 2 representing early acute diverticulitis. No perforation or abscess. 3.Partially contracted gallbladder with mild gallbladder wall prominence and pericholecystic infiltration.If clinically warranted, a right upper quadrant ultrasound and correlation with LFTs may be helpful for further assessment.
[2017-06-11 01:50] VITALS: BP 119/89; PULSE 80; TEMP 98.1
[2017-06-11 02:15] VITALS: RESP 18; O2SAT 98
== END 2017-06-11 02:15 | disposition home or self-care (01) ==
LOC: ED 20:25
DX: K57.92 Diverticulitis of intestine, part unspecified, without perforation or abscess without bleeding (principal); I10 Essential (primary) hypertension
CPT/HCPCS: 74177; 80053; 81003; 83690; 85025; 87086; 96374; 96375; 99284; J2405; J7040; Q9966; Q9967

== ENCOUNTER 2017-10-14 19:02 | Emergency (ER) | payer MEDICAID ==
[2017-10-14 19:02] VITALS: BMI 29.2
--- NOTE | 2017-10-14 19:05 | ED PDOC ---
Arrival/HPI <Peter Barnett - Last Filed: 10/14/17 21:29> - General Historian: Patient <Slim Alvarez - Last Filed: 10/14/17 22:55> - General Time Seen by Provider: 10/14/17 19:04 - History of Present Illness Narrative History of Present Illness (Text): 10/14/17 19:04 62 y/o female, pmh including diverticulitis, nkda, c/o lower abdominal pain x 2 weeks. Aching pain, on and off, feels nausea, no chills or fever, no night sweat, no rash, no numbness or tingling, no pelvic, no flank pain, no other medical or psychological complaints. (Slim Alvarez) Past Medical History - Provider Review Nursing Documentation Reviewed: Yes - Infectious Disease Hx of Infectious Diseases: None - Past Medical History Past Medical History: No Previous - Cardiac Hx Hypertension: Yes - Pulmonary Hx Respiratory Disorders: No - Neurological Hx Neurological Disorder: No - HEENT Hx HEENT Disorder: No - Renal Hx Renal Disorder: No - Endocrine/Metabolic Hx Endocrine Disorders: No - Hematological/Oncological Hx Blood Disorders: No - Integumentary Hx Dermatological Disorder: No - Musculoskeletal/Rheumatological Hx Arthritis: Yes - Gastrointestinal Hx Diverticulitis: Yes - Genitourinary/Gynecological Hx Genitourinary Disorders: No - Psychiatric Hx Psychophysiologic Disorder: No Hx Substance Use: No - Surgical History Hx Section: Yes (x2) Other/Comment: Colonoscopy - Anesthesia Hx Anesthesia: Yes Hx Anesthesia Reactions: No Hx Malignant Hyperthermia: No - Suicidal Assessment Feels Threatened In Home Enviroment: No <Slim Alvarez - Last Filed: 10/14/17 22:55> Family/Social History - Physician Review Nursing Documentation Reviewed: Yes Family/Social History: Unknown Family HX Smoking Status: Never Smoked Hx Alcohol Use: No Hx Substance Use: No Hx Substance Use Treatment: No <Slim Alvarez - Last Filed: 10/14/17 22:55> Allergies/Home Meds <Peter Barnett - Last Filed: 10/14/17 21:29> <Slim Alvarez - Last Filed: 10/14/17 22:55> Allergies/Adverse Reactions: Allergies No Known Allergies Allergy (Verified 10/14/17 19:14) Home Medications: Home Meds Medication Instructions Recorded Confirmed Cholecalciferol [Vitamin D 1000 IU] 1 tab PO DAILY 03/26/17 10/14/17 predniSONE [Prednisone] 0 mg PO DAILY 10/14/17 10/14/17 Review of Systems - Review of Systems Constitutional: absent: Fatigue Eyes: absent: Vision Changes ENT: absent: Hearing Changes Respiratory: absent: SOB, Cough Cardiovascular: absent: Chest Pain Gastrointestinal: Abdominal Pain, Nausea. absent: Diarrhea, Vomiting Skin: absent: Rash Neurological: absent: Headache, Dizziness Psychiatric: absent: Anxiety, Depression, Suicidal Ideation <Slim Alvarez - Last Filed: 10/14/17 22:55> Physical Exam Vital Signs Reviewed: Yes Temperature: Afebrile Blood Pressure: Normal Pulse: Regular Respiratory Rate: Normal Appearance: Positive for: Well-Appearing, Non-Toxic, Comfortable Pain Distress: Mild Mental Status: Positive for: Alert and Oriented X 3 - Systems Exam Head: Present: Atraumatic, Normocephalic Pupils: Present: PERRL Extroacular Muscles: Present: EOMI Conjunctiva: Present: Normal Mouth: Present: Moist Mucous Membranes Neck: Present: Normal Range of Motion Respiratory/Chest: Present: Clear to Auscultation, Good Air Exchange. No: Respiratory Distress, Accessory Muscle Use Cardiovascular: Present: Regular Rate and Rhythm, Normal S1, S2. No: Murmurs Abdomen: Present: Tenderness (+ttp on the lt. sided abdominal region. ), Normal Bowel Sounds. No: Distention, Peritoneal Signs, Rebound, Guarding Back: Present: Normal Inspection Upper Extremity: Present: Normal Inspection. No: Cyanosis, Edema Lower Extremity: Present: Normal Inspection. No: Edema Neurological: Present: GCS=15, CN II-XII Intact, Speech Normal, Motor Func Grossly Intact, Gait Normal, Memory Normal Skin: Present: Warm, Dry, Normal Color. No: Rashes Psychiatric: Present: Alert, Oriented x 3, Normal Insight, Normal Concentration <Slim Alvarez - Last Filed: 10/14/17 22:55> Vital Signs Temp Pulse Resp BP Pulse Ox 10/14/17 19:54 99.0 F 10/14/17 19:10 99.9 F H 92 H 18 116/75 98 Medical Decision Making <Peter Barnett - Last Filed: 10/14/17 21:29> - RAD Interpretation Change Management Specialist: Radiologist <Slim Alvarez - Last Filed: 10/14/17 22:55> ED Course and Treatment: 10/14/17 19:32 -labs/ua -CT abdomen and pelvis -EKG -IVF/pepcid/zofran -observe and reassess 10/14/17 22:48 -EKG: NSR @ 78 BPM, no ST elevation or depression, no T wave inversion. -CT abdomen and pelvis show Descending colon diverticulitis, no abscess or free air -VBG with normal lactic acid. -Labs are non-significant -Temp repeated with no fever, no antipyretic given. Pt. feels better, tolerating po. -Cipro/flagyl and percocet ordered, tolerating po, discussed the side effect of flagyl and cipro which including but not limited to prolong QT causing cardiac arrymthia or achilles tendon rupture, pt. verbally expressed understanding and willing to accept the risk. -Discharge home with ciprofloxacin, flagyl, motrin, pepcid, bed rest, stay hydrated, follow up with your own pmd and GI within 2 days, return to the ER for any new or worsening signs or symptoms. (Slim Alvarez) - Lab Interpretations Lab Results: 10/14/17 20:15 10/14/17 20:15 Lab Results 10/14/17 21:43: Urine Color Yellow, Urine Appearance Clear, Urine pH 8.0, Ur Specific Leopold 1.015, Urine Protein Negative, Urine Glucose (UA) Negative, Urine Ketones Negative, Urine Blood Negative, Urine Nitrate Negative, Urine Bilirubin Negative, Urine Urobilinogen 0.2, Ur Leukocyte Esterase Negative 10/14/17 20:57: Influenza Typ A,B (EIA) Negative for flu a/b 10/14/17 20:15: WBC 8.7 D, RBC 4.42, Hgb 13.2, Hct 40.2, MCV 91.0, MCH 29.9, MCHC 32.8, RDW 13.5, Plt Count 249, MPV 11.2 H, Gran % 65.1, Lymph % (Auto) 22.8 , [place]field % (Auto) 9.9 H, Eos % (Auto) 1.7, Baso % (Auto) 0.5, Gran # 5.67, Lymph # (Auto) 2.0, [place]field # (Auto) 0.9 H, Eos # (Auto) 0.2, Baso # (Auto) 0.04 10/14/17 20:15: Sodium 144, Chloride 101, Potassium 3.9, Carbon Dioxide 32, Anion Gap 15, BUN 14, Creatinine 1.1, Est GFR ( Amer) > 60, Est GFR (Non- Af Amer) 50, Random Glucose 94, Calcium 10.3, Total Bilirubin 0.4, AST 31, ALT 38, Alkaline Phosphatase 78, Total Protein 7.8, Albumin 4.5, Globulin 3.3, Albumin/Globulin Ratio 1.3, Lipase 76 10/14/17 20:15: pO2 50, VBG pH 7.38, VBG pCO2 55.0, VBG HCO3 32.5 H, VBG Total CO2 34.2 H, VBG O2 Sat (Calc) 89.5 H, VBG Base Excess 5.8 H, VBG Potassium 3.9, Sodium 140.0, Chloride 104.0, Glucose 94, Lactate 1.1, FiO2 21.0, Venous Blood Potassium 3.9 - RAD Interpretation Radiology Orders: 10/14/17 19:29 ABD & PELVIS IV CONTRAST ONLY [CT] Stat 10/14/17 19:29 ABD & PELVIS IV CONTRAST ONLY [CT] Stat FINDINGS: Lower thorax: Heart size is normal. There is a small hiatal hernia. There is a calcified granuloma in the left base. There is minimal atelectasis/scarring. ABDOMEN: Liver: unremarkable Gallbladder and bile ducts: Gallbladder is collapsed.There is prominence of the common duct. Pancreas: Pancreas is mildly atrophic. Spleen: unremarkable Adrenals: unremarkable Kidneys and ureters: unremarkable Stomach and bowel: The stomach is distended with ingested material. Rotation is normal. There is no obstruction. Ileocecal region is unremarkable. Appendix and terminal ileum are unremarkable. There is moderate stool in the colon. There is diverticulosis. There is descending colon diverticulitis. There is inflammation and edema in pericolonic fat. Appendix: See stomach and bowel PELVIS: Bladder: unremarkable Reproductive: Uterine contours are mildly nodular. There is a small enhancing uterine mass with adjacent calcification.Adnexal structures are unremarkable. There is a labial ring. ABDOMEN and PELVIS: Intraperitoneal space: There is no free air. There is a small amount of fluid in the left colic gutter. There is no free fluid in the pelvis. Bones/joints: There are degenerative changes in the osseus structures. Soft tissues: There is a small fat containing umbilical hernia. Vasculature: There are multiple phleboliths. There are vascular calcifications. Lymph nodes: There is no pathologic adenopathy. IMPRESSION: Descending colon diverticulitis, no abscess or free air Additional nonemergent findings as described above. Thank you for allowing us to participate in the care of your patient. Dictated and Authenticated by: Kelly Chavarria MD 10/14/2017 10:43 PM Eastern Time ([place] & [place]) (Slim Alvarez) - Medication Orders Current Medication Orders: Ciprofloxacin (Cipro) 500 mg PO ONCE STA PRN Reason: Protocol Stop: 10/14/17 22:46 Sodium Chloride (Sodium Chloride 0.9%) 1,000 mls @ 100 mls/hr IV .Q10H FISH Last Admin: 10/14/17 20:22 Dose: 100 mls/hr eMAR Start Stop Document 10/14/17 20:22 HI (Rec: 10/14/17 20:23 HI [id number]) Intravenous Solution Start Date 10/14/17 Start Time 20:22 Oxycodone/Acetaminophen (Percocet 5/325 Mg Tab) 1 tab PO STAT STA Stop: 10/14/17 22:46 - PA / VICE PRESIDENT NETWORK / Resident Statement BRISA has reviewed & agrees with the documentation as recorded. <Peter Barnett - Last Filed: 10/14/17 21:29> - PA / VICE PRESIDENT NETWORK / Resident Statement BRISA has reviewed & agrees with the documentation as recorded. <Slim Alvarez - Last Filed: 10/14/17 22:55> Disposition/Present on Arrival <Peter Barnett - Last Filed: 10/14/17 21:29> - Present on Arrival Any Indicators Present on Arrival: No History of DVT/PE: No History of Uncontrolled Diabetes: No Urinary Catheter: No History of Decub. Ulcer: No History Surgical Site Infection Following: None - Disposition Have Diagnosis and Disposition been Completed?: Yes Disposition Time: 22:51 Patient Plan: Discharge <Slim Alvarez - Last Filed: 10/14/17 22:55> - Disposition Diagnosis: Diverticulitis Disposition: HOME/ ROUTINE Condition: IMPROVED Discharge Instructions (ExitCare): Diverticulitis Additional Instructions: -Discharge home with ciprofloxacin, flagyl, motrin, pepcid, bed rest, stay hydrated, follow up with your own pmd and GI within 2 days, return to the ER for any new or worsening signs or symptoms. Prescriptions: Ciprofloxacin/Ciprofloxa HCl [Ciprofloxacin] 500 mg PO BID #14 tab Famotidine [Pepcid] 20 mg PO BID #20 tab Ibuprofen [Motrin] 600 mg PO TID PRN #21 tab PRN Reason: Other metroNIDAZOLE [Flagyl] 500 mg PO TID #21 tab Referrals: Maria Del Carmen Herrera MD [Primary Care Provider] - Follow up with primary Tish Smith MD [Medical Doctor] - Follow up with primary [facility] [Outside] - Follow up with primary Forms: WORK NOTE
[2017-10-14] MEDS ORDERED: Sodium Chloride 0.9% 1,000 ML IV SCH (19:30)
[2017-10-14 19:54] VITALS: TEMP 99
[2017-10-14 20:38] LABS: VENOUS BLOOD GAS BASE EXCESS 5.8 mmol/L (0.0-2.0); VENOUS BLOOD GAS PO2 50 mm/Hg (30-55); VENOUS BLOOD PH 7.38 (7.32-7.43)
[2017-10-14 20:47] LABS: ALB/GLOB RATIO 1.3 (1.1-1.8); ALBUMIN 4.5 g/dL (3.0-4.8); ALT/SGPT 38 U/L (7-56); AST/SGOT 31 U/L (14-36); BLOOD UREA NITROGEN 14 mg/dL (7-21); CALCIUM 10.3 mg/dL (8.4-10.5); GFR AFRICAN-AMERICAN > 60; GFR NON-AFRICAN AMERICAN 50; LIPASE 76 U/L (23-300)
[2017-10-14 20:55] LABS: BASO # 0.04 K/mm3 (0.0-2.0); BASO % 0.5 % (0.0-3.0); EOS # 0.2 (0.0-0.7); EOS % 1.7 % (1.5-5.0); GRAN # 5.67 (1.4-6.5); GRAN % 65.1 % (50.0-68.0); HEMOGLOBIN 13.2 g/dL (12.0-16.0); LYMPH % 22.8 % (22.0-35.0); MEAN CORPUSCULAR HEMOGLOBIN 29.9 pg (25.0-35.0); MEAN CORPUSCULAR HGB CONC 32.8 g/dl (31.0-37.0); MEAN PLATELET VOLUME 11.2 fl (7.0-11.0); MONO # 0.9 (0.1-0.6); MONO % 9.9 % (1.0-6.0); RBC 4.42 10^6/uL (3.5-6.1); RED CELL DISTRIBUTION WIDTH 13.5 % (11.5-14.5); WHITE BLOOD COUNT 8.7 10^3/ul (4.5-11.0)
[2017-10-14] MEDS ORDERED: Iohexol 350 MG/100 ML VIAL ONE (21:14)
[2017-10-14 22:05] LABS: URINE BILIRUBIN NEGATIVE (NEGATIVE); URINE BLOOD NEGATIVE (NEGATIVE); URINE GLUCOSE (UA) NEGATIVE (NEGATIVE); URINE LEUKOCYTE ESTERASE NEGATIVE Leu/uL (NEGATIVE); URINE PROTEIN NEGATIVE mg/dL (<30 mg/dL); URINE UROBILINOGEN 0.2 E.U./dL (<1 E.U./dL)
[2017-10-14 22:13] LABS: URINE APPEARANCE CLEAR (CLEAR); URINE COLOR YELLOW (YELLOW)
--- NOTE | 2017-10-14 22:43 | CT ---
EXAM: CT Abdomen and Pelvis With Intravenous Contrast EXAM DATE/TIME: 10/14/2017 7:29 PM CLINICAL HISTORY: 62 years old, female; Pain; Abdominal pain; Localized; Left; Prior surgery; Surgery type: (2) c-sections; Additional info: Lt. Sided abdominal pain x 2 weeks TECHNIQUE: Axial computed tomography images of the abdomen and pelvis with intravenous contrast. All CT scans at this facility use one or more dose reduction techniques, viz.: automated exposure control; ma/kV adjustment per patient size (including targeted exams where dose is matched to indication; i.e. head); or iterative reconstruction technique. Coronal and sagittal reformatted images were created and reviewed. CONTRAST: 95 mL of OMNI 350 administered intravenously. COMPARISON: CT - ABD PELVIS PO IV CONTRAST 2017-06-11 00:03 FINDINGS: Lower thorax: Heart size is normal. There is a small hiatal hernia. There is a calcified granuloma in the left base. There is minimal atelectasis/scarring. ABDOMEN: Liver: unremarkable Gallbladder and bile ducts: Gallbladder is collapsed.There is prominence of the common duct. Pancreas: Pancreas is mildly atrophic. Spleen: unremarkable Adrenals: unremarkable Kidneys and ureters: unremarkable Stomach and bowel: The stomach is distended with ingested material. Rotation is normal. There is no obstruction. Ileocecal region is unremarkable. Appendix and terminal ileum are unremarkable. There is moderate stool in the colon. There is diverticulosis. There is descending colon diverticulitis. There is inflammation and edema in pericolonic fat. Appendix: See stomach and bowel PELVIS: Bladder: unremarkable Reproductive: Uterine contours are mildly nodular. There is a small enhancing uterine mass with adjacent calcification.Adnexal structures are unremarkable. There is a labial ring. ABDOMEN and PELVIS: Intraperitoneal space: There is no free air. There is a small amount of fluid in the left colic gutter. There is no free fluid in the pelvis. Bones/joints: There are degenerative changes in the osseus structures. Soft tissues: There is a small fat containing umbilical hernia. Vasculature: There are multiple phleboliths. There are vascular calcifications. Lymph nodes: There is no pathologic adenopathy. IMPRESSION: Descending colon diverticulitis, no abscess or free air Additional nonemergent findings as described above.
[2017-10-14] MEDS ORDERED: Oxycodone/Acetaminophen 5/325 mg Tab PO STA (22:45)
[2017-10-14 23:10] VITALS: BP 120/87; PULSE 80; RESP 16; O2SAT 99
--- NOTE | 2017-10-15 17:37 | CARD ---
APPROVED REPORT EKG Measurement Heart [id number] <Conclusion> Normal sinus rhythm Normal ECG
== END 2017-10-14 23:07 | disposition home or self-care (01) ==
LOC: ED 19:02
DX: K57.92 Diverticulitis of intestine, part unspecified, without perforation or abscess without bleeding (principal); I10 Essential (primary) hypertension
CPT/HCPCS: 74177; 80053; 81003; 82803; 83690; 85025; 87804; 93005; 99284; J7040; Q9967

== ENCOUNTER 2018-01-04 19:04 | Emergency (ER) | payer MEDICAID ==
[2018-01-04 19:04] VITALS: BMI 29.2
[2018-01-04 19:35] VITALS: TEMP 98.5
--- NOTE | 2018-01-04 20:09 | ED PDOC ---
Arrival/HPI - General Chief Complaint: Female Genitourinary Time Seen by Provider: 01/04/18 19:27 Historian: Patient - History of Present Illness Narrative History of Present Illness (Text): 01/04/18 19:51 A 62 year old female, whose past medical history includes hypertension, arthritis, diverticulosis, and diverticulitis, presents to the emergency department complaining of vaginal discharge for 2 days. Patient reports taking Monistate for discharge. Patient notes also experiencing couple days of dysuria , hematuria, and urinary frequency. Patient denies any vaginal bleeding, fever, chills, body aches, or any other complaints. No PMD Past Medical History - Provider Review Nursing Documentation Reviewed: Yes - Infectious Disease Hx of Infectious Diseases: None - Past Medical History Past Medical History: No Previous - Cardiac Hx Cardiac Disorders: Yes Hx Hypertension: Yes - Pulmonary Hx Respiratory Disorders: No - Neurological Hx Neurological Disorder: No - HEENT Hx HEENT Disorder: No - Renal Hx Renal Disorder: No - Endocrine/Metabolic Hx Endocrine Disorders: No - Hematological/Oncological Hx Blood Disorders: No - Integumentary Hx Dermatological Disorder: No - Musculoskeletal/Rheumatological Hx Musculoskeletal Disorders: Yes Hx Arthritis: Yes - Gastrointestinal Hx Gastrointestinal Disorders: Yes Hx Diverticulitis: Yes - Genitourinary/Gynecological Hx Genitourinary Disorders: No - Psychiatric Hx Psychophysiologic Disorder: No Hx Substance Use: No - Surgical History Hx Section: Yes (x2) Other/Comment: Colonoscopy - Anesthesia Hx Anesthesia: Yes Hx Anesthesia Reactions: No Hx Malignant Hyperthermia: No - Suicidal Assessment Feels Threatened In Home Enviroment: No Family/Social History - Physician Review Nursing Documentation Reviewed: Yes Family/Social History: No Known Family HX Smoking Status: Never Smoked Hx Alcohol Use: Yes Frequency of alcohol use: Socially Hx Substance Use: No Hx Substance Use Treatment: No Allergies/Home Meds Allergies/Adverse Reactions: Allergies No Known Allergies Allergy (Verified 10/14/17 19:14) Home Medications: Home Meds Medication Instructions Recorded Confirmed Cholecalciferol [Vitamin D 1000 IU] 1 tab PO DAILY 03/26/17 10/14/17 predniSONE [Prednisone] 0 mg PO DAILY 10/14/17 10/14/17 Review of Systems - Physician Review All systems were reviewed & negative as marked: Yes - Review of Systems Constitutional: absent: Fevers, Night Sweats Genitourinary Female: Dysuria, Frequency, Hematuria, Vaginal Discharge. absent : Vaginal Bleeding Musculoskeletal: absent: Myalgias Physical Exam Vital Signs Reviewed: Yes Vital Signs Temp Pulse Resp BP Pulse Ox 01/04/18 21:12 80 18 137/62 100 01/04/18 19:27 98.5 F 68 17 137/86 96 Temperature: Afebrile Blood Pressure: Normal Pulse: Regular Respiratory Rate: Normal Appearance: Positive for: Well-Appearing Pain Distress: None Mental Status: Positive for: Alert and Oriented X 3 - Systems Exam Abdomen: No: Tenderness, Distention, Peritoneal Signs Genitourinary/Pelvic Exam: Present: Normal External Genitalia, Vaginal Discharge (white thick discharge), Cervical os Closed, 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 No: Vaginal Bleeding, Vaginal Lesions, Adenexal Tenderness, Adenexal Mass, Cervical Motion Tendernes, Odor Back: No: CVA Tenderness Upper Extremity: Present: Normal Inspection. No: Cyanosis, Edema Lower Extremity: Present: Normal Inspection. No: Edema Neurological: Present: GCS=15, CN II-XII Intact, Speech Normal Skin: Present: Warm, Dry, Normal Color. No: Rashes Psychiatric: Present: Alert, Oriented x 3, Normal Insight, Normal Concentration Medical Decision Making ED Course and Treatment: 01/04/18 19:55 Impression: 62 year old female with vaginal dischagge, urinary frequency, dysuria, and hematuria. Physical exam shows normal abdomen exam; no CVA tenderness to back. Differential Diagnosis included but are not limited to: Vaginal Candidiasis vs. UTI Plan: -- Urine Culture -- Urinalysis -- Labs -- Reassess and disposition Prior Visits: Notes and results from previous visits were reviewed. Patient was last seen in the emergency department on 10/14/2017 for lower abdominal pain. Patient was discharged home. Progress Notes: 01/05/18 02:10 Treated with Diflucan for Vaginal Candidiasis and given Bactrim for UTI. Advised to follow up with primary care doctor in 2-3 days. - Lab Interpretations Lab Results: Lab Results 01/04/18 20:07: Urine Color Red, Urine Appearance Turbid, Urine pH 6.0, Ur Specific [place] >= 1.030, Urine Protein 100 H, Urine Glucose (UA) Negative, Urine Ketones Trace H, Urine Blood Large H, Urine Nitrate Positive H, Urine Bilirubin Negative, Urine Urobilinogen 0.2, Ur Leukocyte Esterase Large H, Urine RBC Tntc, Urine WBC Tntc, Ur Epithelial Cells 6 - 8, Urine Bacteria Many - Medication Orders Current Medication Orders: Discontinued Medications Fluconazole (Diflucan) 150 mg PO STAT STA PRN Reason: Protocol Stop: 01/04/18 20:53 Last Admin: 01/04/18 21:09 Dose: 150 mg Trimethoprim/Sulfamethoxazole (Bactrim Ds Tab) 1 tab PO STAT STA PRN Reason: Protocol Stop: 01/04/18 20:51 Last Admin: 01/04/18 21:10 Dose: 1 tab - Scribe Statement The provider has reviewed the documentation as recorded by the Alethea Dutta Provider Scribe Attestation: All medical record entries made by the Scribe were at my direction and personally dictated by me. I have reviewed the chart and agree that the record accurately reflects my personal performance of the history, physical exam, medical decision making, and the department course for this patient. I have also personally directed, reviewed, and agree with the discharge instructions and disposition. Disposition/Present on Arrival - Present on Arrival Any Indicators Present on Arrival: No History of DVT/PE: No History of Uncontrolled Diabetes: No Urinary Catheter: No History of Decub. Ulcer: No History Surgical Site Infection Following: None - Disposition Have Diagnosis and Disposition been Completed?: Yes Diagnosis: Yeast infection, UTI (urinary tract infection) Disposition: HOME/ ROUTINE Disposition Time: 21:00 Patient Plan: Discharge Condition: IMPROVED Discharge Instructions (ExitCare): Urinary Tract Infections in Adults, Yeast Infection (DC) Additional Instructions: Ms Arellano, thank you for letting us take care of you today. Your provider was Dr. Montejo. You were treated for UTI, Vaginal Candidiasis. The emergency medical care you received today was directed at your acute symptoms. If you were prescribed any medication, please fill it and take as directed. It may take several days for your symptoms to resolve. Return to the Emergency Department if your symptoms worsen, do not improve, or if you have any other problems. Please contact your doctor or call one of the physicians/clinics you have been referred to that are listed on the Patient Visit Information form that is included in your discharge packet. Bring any paperwork you were given at discharge with you along with any medications you are taking to your follow up visit. Our treatment cannot replace ongoing medical care by a primary care provider (PCP) outside of the emergency department. Thank you for allowing the [facility] team to be part of your care today. If you had an X-Ray or CT scan: A Radiologist will review the ED reading if any change in treatment is needed we will contact you. If you had a blood, urine, or wound culture: It will take several days for the results, if any change in treatment is needed we will contact you. If you had an STI test: It will take 48 hours for the results. Please call after 1 week if you have not heard back. Prescriptions: Sulfamethoxazole/Trimethoprim [Bactrim DS 800 mg-160 mg] 1 tab PO Q12 #6 tab Referrals: Rubens Jennings, [Primary Care Provider] - Follow up with primary Forms: [employer] (Sing[place]an), WORK NOTE
[2018-01-04 20:28] LABS: URINE APPEARANCE TURBID (CLEAR); URINE BILIRUBIN NEGATIVE (NEGATIVE); URINE BLOOD LARGE (NEGATIVE); URINE COLOR RED (YELLOW); URINE GLUCOSE (UA) NEGATIVE (NEGATIVE); URINE LEUKOCYTE ESTERASE LARGE Leu/uL (NEGATIVE); URINE PROTEIN 100 mg/dL (<30 mg/dL); URINE UROBILINOGEN 0.2 E.U./dL (<1 E.U./dL)
[2018-01-04 20:29] LABS: URINE BACTERIA MANY (NEG); URINE RBC TNTC /hpf (0-2); URINE WBC TNTC /hpf (0-6)
[2018-01-04] MEDS ORDERED: Tmp-Smz 800 mg-160 mg DS Tab PO STA (20:50)
[2018-01-04 21:13] VITALS: BP 137/62; PULSE 80; RESP 18; O2SAT 100
== END 2018-01-04 21:12 | disposition home or self-care (01) ==
LOC: ED 19:04
DX: I10 Essential (primary) hypertension (principal)

== ENCOUNTER 2018-02-27 19:01 | Emergency (ER) | payer MEDICAID ==
[2018-02-27 19:02] VITALS: BMI 29.2
[2018-02-27 19:14] VITALS: TEMP 98.7
[2018-02-27] MEDS ORDERED: Sodium Chloride 0.9% 1,000 ML IV STA (20:03)
--- NOTE | 2018-02-27 20:07 | ED PDOC ---
Arrival/HPI - General Chief Complaint: GI Problem Time Seen by Provider: 02/27/18 20:03 Historian: Patient - History of Present Illness Narrative History of Present Illness (Text): 02/27/18 20:04 This 62 yo female with pmh RA, diverticulosis, presents to this ED c/o RLQ and LLQ abdominal pain, diarrhea since early today. Patient denies sob, cp, nausea , vomiting, rectal bleeding , dizziness, or abnormal gait. Time/Duration: Other (see hpi) Context: Home Past Medical History - Provider Review Nursing Documentation Reviewed: Yes - Infectious Disease Hx of Infectious Diseases: None - Past Medical History Past Medical History: No Previous - Cardiac Hx Cardiac Disorders: Yes - Pulmonary Hx Respiratory Disorders: No - Neurological Hx Neurological Disorder: No - HEENT Hx HEENT Disorder: No - Renal Hx Renal Disorder: No - Endocrine/Metabolic Hx Endocrine Disorders: No - Hematological/Oncological Hx Blood Disorders: No - Integumentary Hx Dermatological Disorder: No - Musculoskeletal/Rheumatological Hx Musculoskeletal Disorders: Yes Hx Arthritis: Yes - Gastrointestinal Hx Gastrointestinal Disorders: Yes Hx Diverticulitis: Yes Other/Comment: RECENT COLONOSCOPY - Genitourinary/Gynecological Hx Genitourinary Disorders: Yes Hx Urinary Tract Infection: Yes - Psychiatric Hx Psychophysiologic Disorder: No Hx Substance Use: No - Surgical History Hx Section: Yes Other/Comment: COLONOSCOPY - Anesthesia Hx Anesthesia: Yes Hx Anesthesia Reactions: No Hx Malignant Hyperthermia: No - Suicidal Assessment Feels Threatened In Home Enviroment: No Family/Social History - Physician Review Nursing Documentation Reviewed: Yes Family/Social History: Other (noncontributory) Smoking Status: Never Smoked Hx Alcohol Use: No Hx Substance Use: No Hx Substance Use Treatment: No Allergies/Home Meds Allergies/Adverse Reactions: Allergies No Known Allergies Allergy (Verified 02/27/18 19:04) Home Medications: Home Meds Medication Instructions Recorded Confirmed Cholecalciferol (Vitamin D3) 2,000 iu PO DAILY 02/27/18 02/27/18 [Vitamin D3] Diclofenac Sodium [Voltaren] 1 applic TOP PRN PRN 02/27/18 02/27/18 Meloxicam [Mobic] 15 mg PO PRN PRN 02/27/18 02/27/18 Multivitamin Therapeutic Tab 1 tab PO DAILY 02/27/18 02/27/18 [Thera Tab] Omeprazole [Omeprazole] 40 mg PO DAILY 02/27/18 02/27/18 Review of Systems - Review of Systems Constitutional: Normal. absent: Fatigue, Weight Change, Fevers, Night Sweats Eyes: Normal ENT: Normal Respiratory: Normal. absent: SOB, Cough Cardiovascular: Normal. absent: Chest Pain, Palpitations Gastrointestinal: Abdominal Pain, Diarrhea. absent: Nausea, Vomiting Genitourinary Female: Normal. absent: Dysuria, Frequency, Hematuria, Urine Output Changes, Vaginal Bleeding, Vaginal Discharge Musculoskeletal: Normal. absent: Back Pain, Neck Pain Skin: Normal Neurological: Normal Endocrine: Normal Hemo/Lymphatic: Normal Psychiatric: Normal Physical Exam Vital Signs Temp Pulse Resp BP Pulse Ox 02/27/18 19:08 98.7 F 78 16 145/80 95 Temperature: Afebrile Blood Pressure: Normal Pulse: Regular Respiratory Rate: Normal Appearance: Positive for: Well-Appearing, Non-Toxic, Comfortable Pain Distress: None Mental Status: Positive for: Alert and Oriented X 3 - Systems Exam Head: Present: Atraumatic, Normocephalic Pupils: Present: PERRL Extroacular Muscles: Present: EOMI Conjunctiva: Present: Normal Mouth: Present: Moist Mucous Membranes Neck: Present: Normal Range of Motion Respiratory/Chest: Present: Clear to Auscultation, Good Air Exchange. No: Respiratory Distress, Accessory Muscle Use Cardiovascular: Present: Regular Rate and Rhythm, Normal S1, S2. No: Murmurs Abdomen: No: Tenderness, Distention, Peritoneal Signs, Rebound, Guarding, McBurney's Point Tender, Rovsing's Sign Present, Hernias, Feeding Tubes, Ostomy Tubes Back: Present: Normal Inspection. No: CVA Tenderness Upper Extremity: Present: Normal Inspection, Normal ROM. No: Cyanosis, Edema Lower Extremity: Present: Normal Inspection, Normal ROM. No: Edema Neurological: Present: GCS=15, CN II-XII Intact, Speech Normal, Motor Func Grossly Intact, Normal Sensory Function, Normal Cerebellar Funct, Gait Normal, Memory Normal Skin: Present: Warm, Dry, Normal Color. No: Rashes Psychiatric: Present: Alert, Oriented x 3, Normal Insight, Normal Concentration Medical Decision Making ED Course and Treatment: 02/27/18 22:16 Re-evaluation. Patient feels better. Discussed results and plan with patient who expresses understanding. All questions answered and there is agreement with the plan to discharge home with instructions. Patient stable for discharge. Return if symptoms persist or worsen. Re-evaluation Time: 22:16 Reassessment Condition: Re-examined, Improved - Lab Interpretations Lab Results: 02/27/18 20:05 02/27/18 20:05 Lab Results 02/27/18 20:05: Sodium 144, Potassium 3.6, Chloride 105, Carbon Dioxide 28, Anion Gap 15, BUN 17, Creatinine 0.9, Est GFR ( Amer) > 60, Est GFR (Non- Af Amer) > 60, Random Glucose 94, Calcium 9.0, Magnesium 2.0, Total Bilirubin 0.3, AST 25, ALT 45, Alkaline Phosphatase 93, Total Protein 7.0, Albumin 4.3, Globulin 2.8, Albumin/Globulin Ratio 1.5, Lipase 85 02/27/18 20:05: Urine Color Yellow, Urine Appearance Clear, Urine pH 6.0, Ur Specific [place] 1.025, Urine Protein Negative, Urine Glucose (UA) Negative, Urine Ketones Negative, Urine Blood Negative, Urine Nitrate Negative, Urine Bilirubin Negative, Urine Urobilinogen 0.2, Ur Leukocyte Esterase Negative 02/27/18 20:05: WBC 6.0 D, RBC 4.07, Hgb 11.8 L, Hct 35.9 L, MCV 88.2, MCH 29.0 , MCHC 32.9, RDW 13.8, Plt Count 244, MPV 10.5, Gran % 47.4 L, Lymph % (Auto) 38.7 H, [place] % (Auto) 9.4 H, Eos % (Auto) 3.8, Baso % (Auto) 0.7, Gran # 2.86, Lymph # (Auto) 2.3, [place] # (Auto) 0.6, Eos # (Auto) 0.2, Baso # (Auto) 0.04 I have reviewed the lab results: Yes Interpretation: All labs normal - RAD Interpretation Narrative RAD Interpretations (Text): 02/27/18 22:16 FINDINGS: Lung bases: Calcified granuloma left lung base. ABDOMEN: Liver: Unremarkable. No mass. Gallbladder and bile ducts: Unremarkable. No calcified stones. No ductal dilation. Pancreas: Unremarkable. No mass. No ductal dilation. Spleen: Unremarkable. No splenomegaly. Adrenals: Unremarkable. No mass. Kidneys and ureters: Unremarkable. No solid mass. No hydronephrosis. Stomach and bowel: Diverticulosis in the colon without evidence of diverticulitis. No obstruction. PELVIS: Appendix: Normal appendix. Bladder: Unremarkable. No mass. Reproductive: Unremarkable as visualized. ABDOMEN and PELVIS: Intraperitoneal space: Unremarkable. No free air. No significant fluid collection. Bones/joints: No acute fracture. No dislocation. Soft tissues: Unremarkable. Vasculature: Atherosclerotic disease. No abdominal aortic aneurysm. Lymph nodes: Unremarkable. No enlarged lymph nodes. IMPRESSION: No acute findings. Extensive diverticulosis but no definite diverticulitis. Radiology Orders: 02/27/18 20:03 ABD & PELVIS IV CONTRAST ONLY [CT] Stat - Medication Orders Current Medication Orders: Discontinued Medications Famotidine (Pepcid) 20 mg IVP STAT STA Stop: 02/27/18 20:04 Last Admin: 02/27/18 20:14 Dose: 20 mg IVP Administration Document 02/27/18 20:14 AD (Rec: 02/27/18 20:15 AD [id number]) Charges for Administration # of IVP Administrations 1 Sodium Chloride (Sodium Chloride 0.9%) 1,000 mls @ 1,000 mls/hr IV .Q1H STA Stop: 02/27/18 21:02 Last Admin: 02/27/18 20:13 Dose: 1,000 mls/hr eMAR Start Stop Document 02/27/18 20:13 AD (Rec: 02/27/18 20:14 AD [id number]) Intravenous Solution Start Date 02/27/18 Start Time 20:14 Disposition/Present on Arrival - Present on Arrival Any Indicators Present on Arrival: No History of DVT/PE: No History of Uncontrolled Diabetes: No Urinary Catheter: No History of Decub. Ulcer: No History Surgical Site Infection Following: None - Disposition Have Diagnosis and Disposition been Completed?: Yes Diagnosis: Diarrhea, Nonspecific abdominal pain Disposition: HOME/ ROUTINE Disposition Time: 22:17 Patient Plan: Discharge Patient Problems: Current Active Problems Problem Status Onset Diarrhea Acute Condition: GOOD Discharge Instructions (ExitCare): Diarrhea and Traveler's Diarrhea, Adult (DC) Additional Instructions: Call private doctor for follow up visit in 1-2 days. Drink Pedialyte to hydrate yourself, soups, bread, rice, saltine cracker. Avoid plain water, juice , sodas, etc. Avoid spicy food, fatty food, or junk food. Return to emergency if symptoms worsen. Prescriptions: Dicyclomine [Bentyl] 20 mg PO QID PRN #20 tab PRN Reason: Gi Distress Famotidine [Pepcid] 40 mg PO DAILY #10 tablet Referrals: Elicia Barrios MD [Staff Provider] - Follow up with primary [facility] [Outside] - Follow up with primary Forms: [employer] (Lithuanian)
[2018-02-27 20:30] LABS: URINE BILIRUBIN NEGATIVE (NEGATIVE); URINE BLOOD NEGATIVE (NEGATIVE); URINE GLUCOSE (UA) NEGATIVE (NEGATIVE); URINE LEUKOCYTE ESTERASE NEGATIVE Leu/uL (NEGATIVE); URINE PROTEIN NEGATIVE mg/dL (<30 mg/dL); URINE UROBILINOGEN 0.2 E.U./dL (<1 E.U./dL)
[2018-02-27 20:32] LABS: URINE APPEARANCE CLEAR (CLEAR); URINE COLOR YELLOW (YELLOW)
[2018-02-27 20:33] LABS: BASO # 0.04 K/mm3 (0.0-2.0); BASO % 0.7 % (0.0-3.0); EOS # 0.2 (0.0-0.7); EOS % 3.8 % (1.5-5.0); GRAN # 2.86 (1.4-6.5); GRAN % 47.4 % (50.0-68.0); HEMOGLOBIN 11.8 g/dL (12.0-16.0); LYMPH # 2.3 (1.2-3.4); LYMPH % 38.7 % (22.0-35.0); MEAN CELL VOLUME 88.2 fl (80.0-105.0); MEAN CORPUSCULAR HGB CONC 32.9 g/dl (31.0-37.0); MEAN PLATELET VOLUME 10.5 fl (7.0-11.0); MONO # 0.6 (0.1-0.6); MONO % 9.4 % (1.0-6.0); RBC 4.07 10^6/uL (3.5-6.1); RED CELL DISTRIBUTION WIDTH 13.8 % (11.5-14.5)
[2018-02-27 20:40] LABS: ALB/GLOB RATIO 1.5 (1.1-1.8); ALBUMIN 4.3 g/dL (3.0-4.8); ALT/SGPT 45 U/L (7-56); AST/SGOT 25 U/L (14-36); BLOOD UREA NITROGEN 17 mg/dL (7-21); GFR AFRICAN-AMERICAN > 60; GFR NON-AFRICAN AMERICAN > 60; LIPASE 85 U/L (23-300)
[2018-02-27] MEDS ORDERED: Iohexol 350 MG/100 ML VIAL ONE (20:43)
[2018-02-27 22:44] VITALS: BP 138/72; PULSE 75; RESP 18; O2SAT 100
--- NOTE | 2018-02-28 09:57 | CT ---
Date of service: 02/27/2018 PROCEDURE: CT Abdomen and Pelvis without intravenous contrast HISTORY: abd. pain COMPARISON: 10/14/17 TECHNIQUE: Technique. Contrast dose: Radiation dose: Total exam DLP = mGy-cm. This CT exam was performed using one or more of the following dose reduction techniques: Automated exposure control, adjustment of the mA and/or kV according to patient size, and/or use of iterative reconstruction technique. FINDINGS: LOWER THORAX: Unremarkable. LIVER: Unremarkable. No gross lesion or ductal dilatation. GALLBLADDER AND BILE DUCTS: Unremarkable. PANCREAS: Unremarkable. No gross lesion or ductal dilatation. SPLEEN: Unremarkable. ADRENALS: Unremarkable. No mass. KIDNEYS AND URETERS: Unremarkable. No hydronephrosis. No solid mass. VASCULATURE: Unremarkable. No aortic aneurysm. BOWEL: Diverticulosis.. No obstruction. No gross mural thickening. APPENDIX: Unremarkable. Normal appendix. PERITONEUM: Unremarkable. No free fluid. No free air. LYMPH NODES: Unremarkable. No enlarged lymph nodes. BLADDER: Unremarkable. REPRODUCTIVE: Unremarkable. BONES: No acute fracture. OTHER FINDINGS: None. IMPRESSION: Diverticulosis.
== END 2018-02-27 22:30 | disposition home or self-care (01) ==
LOC: ED 19:01
DX: R19.7 Diarrhea, unspecified (principal); R10.32 Left lower quadrant pain; R10.31 Right lower quadrant pain
CPT/HCPCS: 74177; 80053; 81003; 83690; 83735; 85025; 96374; 99283; J7030; Q9967

== ENCOUNTER 2018-05-14 10:53 | Emergency (ER) | payer MEDICAID ==
[2018-05-14 11:08] VITALS: RESP 17
[2018-05-14 11:17] VITALS: BMI 29.7
--- NOTE | 2018-05-14 11:42 | ED PDOC ---
Arrival/HPI - General Chief Complaint: Abdominal Pain Time Seen by Provider: 05/14/18 11:37 Historian: Patient - History of Present Illness Narrative History of Present Illness (Text): 05/14/18 11:38 A 62 year old female, whose past medical history includes diverticulitis, presents to the emergency department complaining of right lower quadrant abdominal pain. The patient notes that she has been experiencing this discomfort for a few days. The patient notes that the pain is exacerbated when sitting down and alleviated when she stands. She notes that she has not been taking any pain medication for her discomfort. The patient denies fevers, chills, headache, dizziness, abdominal pain, nausea, vomiting, diarrhea, back pain, neck pain, chest pain, shortness of breath, dyspnea on exertion, cough or any other complaint. Time/Duration: Other (Few Days) Symptom Onset: Gradual Symptom Course: Unchanged Activities at Onset: Rest, Light Context: Home Past Medical History - Provider Review Nursing Documentation Reviewed: Yes - Infectious Disease Hx of Infectious Diseases: None - Past Medical History Past Medical History: No Previous - Cardiac Hx Cardiac Disorders: No - Pulmonary Hx Respiratory Disorders: No - Neurological Hx Neurological Disorder: No - HEENT Hx HEENT Disorder: No - Renal Hx Renal Disorder: No - Endocrine/Metabolic Hx Endocrine Disorders: No - Hematological/Oncological Hx Blood Disorders: No - Integumentary Hx Dermatological Disorder: No - Musculoskeletal/Rheumatological Hx Musculoskeletal Disorders: Yes Hx Arthritis: Yes - Gastrointestinal Hx Gastrointestinal Disorders: Yes Hx Diverticulitis: Yes Other/Comment: RECENT COLONOSCOPY 04/27/2018 - Genitourinary/Gynecological Hx Genitourinary Disorders: Yes Hx Urinary Tract Infection: Yes - Psychiatric Hx Psychophysiologic Disorder: No Hx Substance Use: No - Surgical History Hx Section: Yes Other/Comment: COLONOSCOPY - Anesthesia Hx Anesthesia: Yes Hx Anesthesia Reactions: No Hx Malignant Hyperthermia: No - Suicidal Assessment Feels Threatened In Home Enviroment: No Family/Social History - Physician Review Nursing Documentation Reviewed: Yes Family/Social History: No Known Family HX Smoking Status: Never Smoked Hx Alcohol Use: Yes Frequency of alcohol use: Socially Hx Substance Use: No Hx Substance Use Treatment: No Allergies/Home Meds Allergies/Adverse Reactions: Allergies No Known Allergies Allergy (Verified 02/27/18 19:04) Home Medications: Home Meds Medication Instructions Recorded Confirmed Cholecalciferol (Vitamin D3) 2,000 iu PO DAILY 02/27/18 05/14/18 [Vitamin D3] Diclofenac Sodium [Voltaren] 1 applic TOP PRN PRN 02/27/18 05/14/18 Multivitamin Therapeutic Tab 1 tab PO DAILY 02/27/18 05/14/18 [Thera Tab] RX: Meloxicam [Mobic] 15 mg PO PRN PRN 02/27/18 05/14/18 Review of Systems - Physician Review All systems were reviewed & negative as marked: Yes - Review of Systems Constitutional: absent: Fevers Respiratory: absent: SOB, Cough Cardiovascular: absent: Chest Pain, FAIR Gastrointestinal: Abdominal Pain (RLQ abdominal pain.). absent: Diarrhea, Nausea, Vomiting Genitourinary Female: absent: Urine Output Changes Musculoskeletal: absent: Back Pain, Neck Pain Neurological: absent: Headache, Dizziness Physical Exam Vital Signs Reviewed: Yes Vital Signs Temp Pulse Resp BP Pulse Ox 05/14/18 11:13 98.7 F 78 17 137/86 96 05/14/18 11:02 98.7 F 78 17 137/86 96 Temperature: Afebrile Blood Pressure: Normal Pulse: Regular Respiratory Rate: Normal Appearance: Positive for: Well-Appearing, Non-Toxic, Comfortable Pain Distress: None Mental Status: Positive for: Alert and Oriented X 3 - Systems Exam Head: Present: Atraumatic, Normocephalic Pupils: Present: PERRL Extroacular Muscles: Present: EOMI Conjunctiva: Present: Normal Mouth: Present: Moist Mucous Membranes Neck: Present: Normal Range of Motion Respiratory/Chest: Present: Clear to Auscultation, Good Air Exchange. No: Respiratory Distress, Accessory Muscle Use Cardiovascular: Present: Regular Rate and Rhythm, Normal S1, S2. No: Murmurs Abdomen: Present: Tenderness (Questionable right lower quadrant abdominal pain.). No: Distention, Peritoneal Signs Back: Present: Normal Inspection Upper Extremity: Present: Normal Inspection. No: Cyanosis, Edema Lower Extremity: Present: Normal Inspection. No: Edema Neurological: Present: GCS=15, CN II-XII Intact, Speech Normal Skin: Present: Warm, Dry, Normal Color. No: Rashes Psychiatric: Present: Alert, Oriented x 3, Normal Insight, Normal Concentration Medical Decision Making ED Course and Treatment: 05/14/18 11:46 Impression: A 62 year old female presents to the emergency department with a complaint of several day duration right lower abdominal pain. Plan: -- Abdomen/ Pelvis CT -- Urinalysis -- Labs -- Reassess and disposition Prior Visits: Notes and results from previous visits were reviewed. Progress Notes: 05/14/18 16:14 On re-evaluation, patient feels better and is in no acute distress. I have discussed the results and plan with the patient, who expresses understanding. Patient in agreement with plan to be discharged home. Patient is stable for discharge. Patient was instructed to follow up with physician/clinic in 1-2 days or return if symptoms worsen or new concerning symptoms arise. - Lab Interpretations I have reviewed the lab results: Yes - RAD Interpretation Narrative RAD Interpretations (Text): PROCEDURE: CT Abdomen and Pelvis with contrast Dictator : Dima Mesa MD Report Date : 05/14/2018 14:00:42 IMPRESSION: No acute intra-abdominal findings. Normal appendix. Diverticulosis of the descending and sigmoid colon. - Scribe Statement The provider has reviewed the documentation as recorded by the Scribe Shelby Richardson Provider Scribe Attestation: All medical record entries made by the Scribe were at my direction and personally dictated by me. I have reviewed the chart and agree that the record accurately reflects my personal performance of the history, physical exam, medical decision making, and the department course for this patient. I have also personally directed, reviewed, and agree with the discharge instructions and disposition Disposition/Present on Arrival - Present on Arrival Any Indicators Present on Arrival: No History of DVT/PE: No History of Uncontrolled Diabetes: No Urinary Catheter: No History of Decub. Ulcer: No History Surgical Site Infection Following: None - Disposition Have Diagnosis and Disposition been Completed?: Yes Diagnosis: Radiculopathy of lumbosacral region Disposition: HOME/ ROUTINE Disposition Time: 16:14 Patient Plan: Discharge Condition: STABLE Discharge Instructions (ExitCare): Radiculopathy (DC) Additional Instructions: Follow up with your primary care doctor. CHARO GARZA, thank you for letting us take care of you today. Your provider was Dr.Lamont Keller and you were treated for right hip pain. The emergency medical care you received today was directed at your acute symptoms. If you were prescribed any medication, please fill it and take as directed. It may take several days for your symptoms to resolve. Return to the Emergency Department if your symptoms worsen, do not improve, or if you have any other problems. Please contact your doctor or call one of the physicians/clinics you have been referred to that are listed on the Patient Visit Information form that is included in your discharge packet. Bring any paperwork you were given at discharge with you along with any medications you are taking to your follow up visit. Our treatment cannot replace ongoing medical care by a primary care provider outside of the emergency department. Thank you for allowing the [facility] team to be part of your care today. If you had an X-Ray or CT scan: A Radiologist will review the ED reading if any change in treatment is needed we will contact you. If you had a blood, urine, or wound culture: It will take several days for the results, if any change in treatment is needed we will contact you. If you had an STI test: It will take 48 hours for the results. Please call after 1 week if you have not heard back. Forms: [employer] (Latvian)
[2018-05-14 12:26] LABS: BASO # 0.03 K/mm3 (0.0-2.0); BASO % 0.6 % (0.0-3.0); EOS # 0.1 (0.0-0.7); EOS % 2.4 % (1.5-5.0); GRAN # 2.75 (1.4-6.5); GRAN % 54.6 % (50.0-68.0); LYMPH # 1.8 (1.2-3.4); MEAN CORPUSCULAR HEMOGLOBIN 29.3 pg (25.0-35.0); MEAN CORPUSCULAR HGB CONC 32.9 g/dl (31.0-37.0); MEAN PLATELET VOLUME 10.6 fl (7.0-11.0); MONO # 0.3 (0.1-0.6); MONO % 6.4 % (1.0-6.0); RBC 4.44 10^6/uL (3.5-6.1); RED CELL DISTRIBUTION WIDTH 14.2 % (11.5-14.5)
[2018-05-14 12:34] LABS: URINE APPEARANCE CLEAR (CLEAR); URINE BILIRUBIN NEGATIVE (NEGATIVE); URINE BLOOD NEGATIVE (NEGATIVE); URINE COLOR YELLOW (YELLOW); URINE GLUCOSE (UA) NEGATIVE (NEGATIVE); URINE LEUKOCYTE ESTERASE NEGATIVE Leu/uL (NEGATIVE); URINE PROTEIN NEGATIVE mg/dL (<30 mg/dL); URINE UROBILINOGEN 0.2 E.U./dL (<1 E.U./dL)
[2018-05-14 12:54] LABS: ALB/GLOB RATIO 1.4 (1.1-1.8); ALT/SGPT 27 U/L (7-56); AST/SGOT 22 U/L (14-36); BLOOD UREA NITROGEN 16 mg/dL (7-21); CALCIUM 9.1 mg/dL (8.4-10.5); GFR NON-AFRICAN AMERICAN > 60; LIPASE 79 U/L (23-300)
[2018-05-14] MEDS ORDERED: Iohexol 350 MG/100 ML VIAL ONE (13:25)
--- NOTE | 2018-05-14 14:02 | CT ---
Date of service: 05/14/2018 PROCEDURE: CT Abdomen and Pelvis with contrast HISTORY: RLQ pain COMPARISON: 02/27/2018 TECHNIQUE: Contrast dose: 100 cc of Omni 350 Radiation dose: Total exam DLP = 575 mGy-cm. This CT exam was performed using one or more of the following dose reduction techniques: Automated exposure control, adjustment of the mA and/or kV according to patient size, and/or use of iterative reconstruction technique. FINDINGS: LOWER THORAX: Unremarkable. LIVER: Unremarkable. No gross lesion or ductal dilatation. GALLBLADDER AND BILE DUCTS: Unremarkable. PANCREAS: Unremarkable. No gross lesion or ductal dilatation. SPLEEN: Unremarkable. ADRENALS: Unremarkable. No mass. KIDNEYS AND URETERS: Unremarkable. No hydronephrosis. No solid mass. VASCULATURE: Unremarkable. No aortic aneurysm. BOWEL: Unremarkable. No obstruction. No gross mural thickening. There is diverticulosis of the descending and sigmoid colon without evidence of diverticulitis. APPENDIX: Normal appendix. PERITONEUM: Unremarkable. No free fluid. No free air. LYMPH NODES: Unremarkable. No enlarged lymph nodes. BLADDER: Unremarkable. REPRODUCTIVE: Unremarkable. BONES: No acute fracture. OTHER FINDINGS: None. IMPRESSION: No acute intra-abdominal findings. Normal appendix. Diverticulosis of the descending and sigmoid colon
[2018-05-14 14:05] VITALS: BP 132/78; TEMP 98.6
[2018-05-14 19:06] VITALS: PULSE 76; O2SAT 99
== END 2018-05-14 16:00 | disposition home or self-care (01) ==
LOC: ED 10:53
DX: M54.17 Radiculopathy, lumbosacral region (principal)
CPT/HCPCS: 74177; 80053; 81003; 83690; 85025; 99283; Q9967

== ENCOUNTER 2018-11-24 18:16 | Observation (INO) | payer MEDICARE, MEDICAID ==
[2018-11-24 18:16] VITALS: BMI 29.2
--- NOTE | 2018-11-24 19:26 | ED PDOC ---
Arrival/HPI - General Chief Complaint: Chest Pain Time Seen by Provider: 11/24/18 18:38 Historian: Patient - History of Present Illness Narrative History of Present Illness (Text): 11/24/18 19:24 63-year-old female with past medical history of rheumatoid arthritis, presents with 5-day history of intermittent left-sided chest pain associated with intermittent shortness of breath, worse today, describes the pain today as sharp pain. Otherwise: (-) radiation, (-) diaphoresis, (-) pleuritic component, (-) ripping or tearing quality, (-) positional component, (-) exertional component, (-) dizziness, (-) syncope, (-) nausea, (-) vomiting, (-) calf swelling/pain, (- ) recent travel, (-) neuro deficits. PMD [facility] Past Medical History - Infectious Disease Hx of Infectious Diseases: None - Past Medical History Past Medical History: No Previous - Cardiac Hx Cardiac Disorders: No - Pulmonary Hx Respiratory Disorders: No - Neurological Hx Neurological Disorder: No - HEENT Hx HEENT Disorder: No - Renal Hx Renal Disorder: No - Endocrine/Metabolic Hx Endocrine Disorders: No - Hematological/Oncological Hx Blood Disorders: No - Integumentary Hx Dermatological Disorder: No - Musculoskeletal/Rheumatological Hx Musculoskeletal Disorders: Yes Hx Arthritis: Yes - Gastrointestinal Hx Gastrointestinal Disorders: Yes Hx Diverticulitis: Yes Other/Comment: RECENT COLONOSCOPY 04/27/2018 - Genitourinary/Gynecological Hx Genitourinary Disorders: Yes Hx Urinary Tract Infection: Yes - Psychiatric Hx Psychophysiologic Disorder: No Hx Substance Use: No - Surgical History Hx Section: Yes Other/Comment: COLONOSCOPY - Anesthesia Hx Anesthesia: Yes Hx Anesthesia Reactions: No Hx Malignant Hyperthermia: No - Suicidal Assessment Feels Threatened In Home Enviroment: No Family/Social History Family/Social History: No Known Family HX Smoking Status: Never Smoked Hx Alcohol Use: Yes Hx Substance Use: No Hx Substance Use Treatment: No Allergies/Home Meds Allergies/Adverse Reactions: Allergies No Known Allergies Allergy (Verified 02/27/18 19:04) Home Medications: Home Meds Medication Instructions Recorded Confirmed Cholecalciferol (Vitamin D3) 2,000 iu PO DAILY 02/27/18 05/14/18 [Vitamin D3] Diclofenac Sodium [Voltaren] 1 applic TOP PRN PRN 02/27/18 05/14/18 Meloxicam [Mobic] 15 mg PO PRN PRN 02/27/18 05/14/18 Multivitamin Therapeutic Tab 1 tab PO DAILY 02/27/18 05/14/18 [Thera Tab] Review of Systems - Review of Systems Constitutional: absent: Fatigue, Fevers ENT: absent: Sore Throat, Rhinorrhea Respiratory: SOB. absent: Cough Cardiovascular: Chest Pain. absent: Palpitations, Edema Gastrointestinal: absent: Abdominal Pain, Diarrhea, Nausea, Vomiting Genitourinary Female: absent: Dysuria, Frequency Musculoskeletal: absent: Arthralgias, Back Pain, Neck Pain Skin: absent: Rash, Pruritis, Skin Lesions Neurological: absent: Headache, Dizziness Physical Exam Vital Signs Temp Pulse Resp BP Pulse Ox 11/24/18 18:28 98.8 F 88 16 163/88 H 97 Temperature: Afebrile Blood Pressure: Hypertensive Pulse: Regular Respiratory Rate: Normal Appearance: Positive for: Well-Appearing, Non-Toxic, Comfortable Pain Distress: None Mental Status: Positive for: Alert and Oriented X 3 - Systems Exam Head: Present: Atraumatic, Normocephalic Pupils: Present: PERRL Extroacular Muscles: Present: EOMI Conjunctiva: Present: Normal Mouth: Present: Moist Mucous Membranes Neck: Present: Normal Range of Motion Respiratory/Chest: Present: Clear to Auscultation, Good Air Exchange. No: Respiratory Distress, Accessory Muscle Use Cardiovascular: Present: Regular Rate and Rhythm, Normal S1, S2. No: Murmurs Abdomen: No: Tenderness, Distention, Peritoneal Signs Back: Present: Normal Inspection Upper Extremity: Present: Normal Inspection. No: Cyanosis, Edema Lower Extremity: Present: Normal Inspection. No: Edema Neurological: Present: GCS=15, CN II-XII Intact, Speech Normal, Motor Func Grossly Intact, Normal Sensory Function Skin: Present: Warm, Dry, Normal Color. No: Rashes Psychiatric: Present: Alert, Oriented x 3, Normal Insight, Normal Concentration Medical Decision Making ED Course and Treatment: 11/24/18 19:23 Plan : - IV - Labs - metal slitter - EKG - CXR - Asa - Reassess / disposition 11/24/18 21:20 EKG : NSR at 87 bpm, RBBB, no acute ST changes. Chest X-ray : NAD. Labs reviewed : initial trop (-). On re-evaluation, patient is laying in bed comfortably in no acute distress. Diagnostic results d/w the patient, plan for further observation with repeat trops explained to the patient and she agrees with the current plan. Case d/w medical billing associate and with Dr. Salomon, agrees with plan for observation to remote tele under the hospitalist service. - RAD Interpretation Radiology Orders: 11/24/18 19:06 CHEST PORTABLE [RAD] Stat - Medication Orders Current Medication Orders: Discontinued Medications Aspirin (Aspirin) 325 mg PO STAT STA Stop: 11/24/18 19:06 - PA / ROLLER HELPER / Resident Statement MD/DO has reviewed & agrees with the documentation as recorded. Disposition/Present on Arrival - Present on Arrival Any Indicators Present on Arrival: No History of DVT/PE: No History of Uncontrolled Diabetes: No Urinary Catheter: No History of Decub. Ulcer: No History Surgical Site Infection Following: None - Disposition Have Diagnosis and Disposition been Completed?: Yes Diagnosis: ACS (acute coronary syndrome), Chest pain Disposition: HOSPITALIZED Disposition Time: 21:20 Patient Plan: Observation Condition: STABLE Discharge Instructions (ExitCare): Chest Pain (ED) Forms: [employer] [facility] ([place])
[2018-11-24 19:45] LABS: BASO # 0.04 K/mm3 (0.0-2.0); BASO % 0.7 % (0.0-3.0); EOS # 0.2 (0.0-0.7); EOS % 2.6 % (1.5-5.0); HEMOGLOBIN 12.9 g/dL (12.0-16.0); LYMPH # 2.4 (1.2-3.4); LYMPH % 41.7 % (22.0-35.0); MEAN CELL VOLUME 90.4 fl (80.0-105.0); MEAN CORPUSCULAR HEMOGLOBIN 29.6 pg (25.0-35.0); MEAN CORPUSCULAR HGB CONC 32.7 g/dl (31.0-37.0); MEAN PLATELET VOLUME 10.6 fl (7.0-11.0); MONO # 0.5 (0.1-0.6); MONO % 8.5 % (1.0-6.0); RBC 4.36 10^6/uL (3.5-6.1); RED CELL DISTRIBUTION WIDTH 13.7 % (11.5-14.5); WHITE BLOOD COUNT 5.7 10^3/uL (4.5-11.0)
[2018-11-24 19:48] LABS: INR 1.02; PARTIAL THROMBOPLASTIN TIME 32.8 Seconds (26.9-38.3); PROTHROMBIN TIME 11.3 SECONDS (9.4-12.5)
[2018-11-24 20:04] LABS: ALB/GLOB RATIO 1.4 (1.1-1.8); ALBUMIN 4.1 g/dL (3.0-4.8); ALT/SGPT 33 U/L (7-56); AST/SGOT 43 U/L (14-36); BLOOD UREA NITROGEN 14 mg/dL (7-21); GFR NON-AFRICAN AMERICAN > 60
[2018-11-24 20:14] LABS: B-TYPE NATRIURETIC PEPTIDE 43.8 pg/mL (0-450); TROPONIN I < 0.01 ng/mL
--- NOTE | 2018-11-25 00:02 | CP.PCM.HP ---
<RustykianaemmettHarpal - Last Filed: 11/24/18 23:56> History of Present Illness - History of Present Illness History of Present Illness: PGY1 Medicine History and Physical Exam Note for Dr. Salomon Patient is a 63-year-old F with PMH significant for rheumatoid arthritis, hy pertension, diverticulosis, and diverticulitis s/p colonoscopy with Dr. Smith (February 2018) who presents to ED with a cc of chest pain x4 days. Patient localizes the pain under her left breast, reports that it is intermittent, lasts a few minutes at a time, and is worse throughout the day. Patient describes the pain as "pressure-like" and non-radiating. Patient denies any provoking factors and/or alleviating factors, however she denies being woken up by chest pain at night. Patient otherwise denies headache, fever, chills, rash, diarrhea, nausea, vomiting, fever, abdominal pain, back pain, and/or lower extremity pain. PMH: rheumatoid arthritis, hypertension, diverticulosis, and diverticulitis s/p colonoscopy with Dr. Smith PSH: s/p x2 Family Hx: Patient denies knowledge of her family history Social Hx: Lives at home with 2 children, denies ETOH, denies tobacco, denies recreational drugs Medications: MAR reviewed; Patient denies knowing names of her current medications Allergies: NKDA Present on Admission - Present on Admission Any Indicators Present on Admission: No History of DVT/PE: No History of Uncontrolled Diabetes: No Urinary Catheter: No Decubitus Ulcer Present: No Review of Systems - Review of Systems All systems: reviewed and no additional remarkable complaints except (as per HPI) Past Patient History - Infectious Disease Hx of Infectious Diseases: None - Past Medical History & Family History Past Medical History?: Yes - Past Social History Smoking Status: Never Smoked - CARDIAC Hx Cardiac Disorders: No - PULMONARY Hx Respiratory Disorders: No - NEUROLOGICAL Hx Neurological Disorder: No - HEENT Hx HEENT Problems: No - RENAL Hx Chronic Kidney Disease: No - ENDOCRINE/METABOLIC Hx Endocrine Disorders: No - HEMATOLOGICAL/ONCOLOGICAL Hx Blood Disorders: No - INTEGUMENTARY Hx Dermatological Problems: No - MUSCULOSKELETAL/RHEUMATOLOGICAL Hx Musculoskeletal Disorders: Yes Hx Arthritis: Yes - GASTROINTESTINAL Hx Gastrointestinal Disorders: Yes Hx Diverticulitis: Yes Other/Comment: RECENT COLONOSCOPY 04/27/2018 - GENITOURINARY/GYNECOLOGICAL Hx Genitourinary Disorders: Yes Hx Urinary Tract Infection: Yes - PSYCHIATRIC Hx Psychophysiologic Disorder: No Hx Substance Use: No - SURGICAL HISTORY Hx Section: Yes Other/Comment: COLONOSCOPY - ANESTHESIA Hx Anesthesia: Yes Hx Anesthesia Reactions: No Hx Malignant Hyperthermia: No Meds Allergies/Adverse Reactions: Allergies Allergy/AdvReac Type Severity Reaction Status Date / Time No Known Allergies Allergy Verified 02/27/18 19:04 Physical Exam - Constitutional Appears: Well, Non-toxic, No Acute Distress - Head Exam Head Exam: ATRAUMATIC, NORMAL INSPECTION, NORMOCEPHALIC - Eye Exam Eye Exam: EOMI, Normal appearance, PERRL. absent: Nystagmus, Scleral icterus Pupil Exam: NORMAL ACCOMODATION - ENT Exam ENT Exam: Mucous Membranes Moist, Normal Exam - Neck Exam Neck exam: Positive for: Normal Inspection - Respiratory Exam Respiratory Exam: Clear to Auscultation Bilateral, NORMAL BREATHING PATTERN. absent: Accessory Muscle Use, Chest Wall Tenderness, Decreased Breath Sounds, Prolonged Expiratory Phase, Rales, Rhonchi, Wheezes, Respiratory Distress, Stridor - Cardiovascular Exam Cardiovascular Exam: REGULAR RHYTHM, +S1, +S2. absent: Bradycardia, Tachycardia, Clicks, Diastolic murmur, Gallop, Irregular Rhythm, JVD, Rubs - GI/Abdominal Exam GI & Abdominal Exam: Normal Bowel Sounds, Soft. absent: Tenderness - Extremities Exam Extremities exam: Positive for: joint swelling (left lateral malleolus ), normal capillary refill, normal inspection, pedal pulses present - Back Exam Back exam: NORMAL INSPECTION - Neurological Exam Neurological exam: Alert, CN II-XII Intact, Oriented x3 - Psychiatric Exam Psychiatric exam: Normal Affect, Normal Mood - Skin Skin Exam: Dry, Intact, Normal Color, Warm Additional comments: no rash Results - Vital Signs Recent Vital Signs: Last Vital Signs Temp 98.8 F 11/24/18 18:28 Pulse 88 11/24/18 18:28 Resp 16 11/24/18 18:28 BP 163/88 H 11/24/18 18:28 Pulse Ox 97 11/24/18 18:28 - Labs Result Diagrams: 11/24/18 19:00 11/24/18 19:00 Labs: Laboratory Results - last 24 hr 11/24/18 11/24/18 11/24/18 19:00 19:00 19:00 WBC 5.7 RBC 4.36 Hgb 12.9 Hct 39.4 MCV 90.4 MCH 29.6 MCHC 32.7 RDW 13.7 Plt Count 281 MPV 10.6 Neut % (Auto) 46.5 L Lymph % (Auto) 41.7 H [place] % (Auto) 8.5 H Eos % (Auto) 2.6 Baso % (Auto) 0.7 Lymph # (Auto) 2.4 [place] # (Auto) 0.5 Eos # (Auto) 0.2 Baso # (Auto) 0.04 Absolute Neuts (auto) 2.64 PT 11.3 INR 1.02 APTT 32.8 Sodium 141 Potassium 3.8 Chloride 106 Carbon Dioxide 27 Anion Gap 13 BUN 14 Creatinine 0.6 L Est GFR ( Amer) > 60 Est GFR (Non-Af Amer) > 60 Random Glucose 101 Calcium 9.0 Magnesium 2.0 Total Bilirubin 0.4 AST 43 H D ALT 33 Alkaline Phosphatase 92 Lactate Dehydrogenase 447 Total Creatine Kinase 69 Troponin I < 0.01 NT-Pro-B Natriuret Pep 43.8 Total Protein 7.1 Albumin 4.1 Globulin 2.9 Albumin/Globulin Ratio 1.4 Assessment & Plan - Assessment and Plan (Free Text) Assessment: Chest Pain ACS rule-out - Troponin negative x1 - EKG: NSR no ST changes - Cardiology consulted (Dr. Lei); recommendations appreciated - F/U Troponin Q6H x2 - F/U EKG Q6H x2 - F/U: Lipid panel, HgbA1C, TSH - F/U UDS - F/U CXR official report - F/U ECHO - Monitor CMP, Mg, Phos - ASA 325 (total 243mg taken at home, per Patient, 1 dose 81mg given in ED) - ASA 81mg po daily - Lipitor - Monitor HTN - HCTZ 25mg PO daily - Monitor Rheumatoid Arthritis - Continue with home meds in AM - F/U ESR - F/U CRP - F/U ECHO Mild Transaminitis - AST 43 - Avoid hepatotoxic agents - Monitor CMP Prophylaxis - GI: Pepcid 40mg PO daily - DVT: SCD, lovenox 40mg SC daily - HHD Patient seen and case discussed with Dr. Aime Dawn PGY1 <Danielle Salomon - Last Filed: 11/25/18 20:00> Results - Vital Signs Recent Vital Signs: Last Vital Signs Temp 98.1 F 11/25/18 12:00 Pulse 73 11/25/18 12:00 Resp 16 11/25/18 12:00 BP 118/68 11/25/18 12:00 Pulse Ox 96 11/25/18 10:56 - Labs Result Diagrams: 11/25/18 06:20 11/25/18 06:20 Labs: Laboratory Results - last 24 hr 11/24/18 11/24/18 11/24/18 18:50 19:00 19:00 WBC RBC Hgb Hct MCV MCH MCHC RDW Plt Count MPV Neut % (Auto) Lymph % (Auto) [place] % (Auto) Eos % (Auto) Baso % (Auto) Lymph # (Auto) [place] # (Auto) Eos # (Auto) Baso # (Auto) Absolute Neuts (auto) ESR Sodium 141 Potassium 3.8 Chloride 106 Carbon Dioxide 27 Anion Gap 13 BUN 14 Creatinine 0.6 L Est GFR ( Amer) > 60 Est GFR (Non-Af Amer) > 60 Random Glucose 101 Hemoglobin A1c 6.0 Calcium 9.0 Phosphorus Magnesium 2.0 Total Bilirubin 0.4 AST 43 H D ALT 33 Alkaline Phosphatase 92 Lactate Dehydrogenase 447 Total Creatine Kinase 69 Troponin I < 0.01 C-Reactive Protein NT-Pro-B Natriuret Pep 43.8 Total Protein 7.1 Albumin 4.1 Globulin 2.9 Albumin/Globulin Ratio 1.4 Triglycerides Cholesterol LDL Cholesterol Direct HDL Cholesterol TSH 3rd Generation 4.42 Urine Opiates Screen Urine Methadone Screen Ur Barbiturates Screen Ur Phencyclidine Scrn Ur Amphetamines Screen U Benzodiazepines Scrn U Oth Cocaine Metabols U Cannabinoids Screen 11/25/18 11/25/18 11/25/18 00:43 01:30 06:20 WBC 4.9 RBC 4.36 Hgb 12.5 Hct 39.1 MCV 89.7 MCH 28.7 MCHC 32.0 RDW 13.7 Plt Count 257 MPV 10.2 Neut % (Auto) 42.0 L Lymph % (Auto) 45.7 H [place] % (Auto) 8.3 H Eos % (Auto) 3.4 Baso % (Auto) 0.6 Lymph # (Auto) 2.3 [place] # (Auto) 0.4 Eos # (Auto) 0.2 Baso # (Auto) 0.03 Absolute Neuts (auto) 2.07 ESR 30 H Sodium Potassium Chloride Carbon Dioxide Anion Gap BUN Creatinine Est GFR ( Amer) Est GFR (Non-Af Amer) Random Glucose Hemoglobin A1c Calcium Phosphorus Magnesium Total Bilirubin AST ALT Alkaline Phosphatase Lactate Dehydrogenase Total Creatine Kinase Troponin I < 0.01 C-Reactive Protein NT-Pro-B Natriuret Pep Total Protein Albumin Globulin Albumin/Globulin Ratio Triglycerides Cholesterol LDL Cholesterol Direct HDL Cholesterol TSH 3rd Generation Urine Opiates Screen Negative Urine Methadone Screen Negative Ur Barbiturates Screen Negative Ur Phencyclidine Scrn Negative Ur Amphetamines Screen Negative U Benzodiazepines Scrn Negative U Oth Cocaine Metabols Negative U Cannabinoids Screen Negative 11/25/18 06:20 WBC RBC Hgb Hct MCV MCH MCHC RDW Plt Count MPV Neut % (Auto) Lymph % (Auto) [place] % (Auto) Eos % (Auto) Baso % (Auto) Lymph # (Auto) [place] # (Auto) Eos # (Auto) Baso # (Auto) Absolute Neuts (auto) ESR Sodium 141 Potassium 3.6 Chloride 105 Carbon Dioxide 29 Anion Gap 10 BUN 10 Creatinine 0.5 L Est GFR ( Amer) > 60 Est GFR (Non-Af Amer) > 60 Random Glucose 102 Hemoglobin A1c Calcium 8.7 Phosphorus 4.1 Magnesium 2.2 Total Bilirubin 0.4 AST 26 ALT 31 Alkaline Phosphatase 81 Lactate Dehydrogenase Total Creatine Kinase Troponin I < 0.01 C-Reactive Protein < 5.00 NT-Pro-B Natriuret Pep Total Protein 6.7 Albumin 3.8 Globulin 2.9 Albumin/Globulin Ratio 1.3 Triglycerides 145 Cholesterol 230 H LDL Cholesterol Direct 170 H HDL Cholesterol 44 TSH 3rd Generation Urine Opiates Screen Urine Methadone Screen Ur Barbiturates Screen Ur Phencyclidine Scrn Ur Amphetamines Screen U Benzodiazepines Scrn U Oth Cocaine Metabols U Cannabinoids Screen Attending/Attestation - Attestation I have personally seen and examined this patient.: Yes I have fully participated in the care of the patient.: Yes I have reviewed all pertinent clinical information: Yes Notes (Text): 11/25/18 19:59 seen and examined. Discussed with resident. A&P as above. Atypical chest pain. New DX of HTN. Start HCTZ.
[2018-11-25 01:21] LABS: BARBITURATES, UR NEGATIVE (NEGATIVE); BENZODIAZEPINES, UR NEGATIVE (NEGATIVE); OPIATES, UR NEGATIVE (NEGATIVE); PHENCYCLIDINE, UR NEGATIVE (NEGATIVE)
[2018-11-25 06:59] LABS: BASO # 0.03 K/mm3 (0.0-2.0); BASO % 0.6 % (0.0-3.0); EOS # 0.2 (0.0-0.7); EOS % 3.4 % (1.5-5.0); HEMOGLOBIN 12.5 g/dL (12.0-16.0); LYMPH # 2.3 (1.2-3.4); LYMPH % 45.7 % (22.0-35.0); MEAN CELL VOLUME 89.7 fl (80.0-105.0); MEAN CORPUSCULAR HEMOGLOBIN 28.7 pg (25.0-35.0); MEAN PLATELET VOLUME 10.2 fl (7.0-11.0); MONO # 0.4 (0.1-0.6); MONO % 8.3 % (1.0-6.0); RBC 4.36 10^6/uL (3.5-6.1); RED CELL DISTRIBUTION WIDTH 13.7 % (11.5-14.5); WHITE BLOOD COUNT 4.9 10^3/uL (4.5-11.0)
--- NOTE | 2018-11-25 07:09 | CP.PCM.PN ---
Subjective - Date & Time of Evaluation Date of Evaluation: 11/25/18 Time of Evaluation: 07:09 Objective - Vital Signs/Intake and Output Vital Signs (last 24 hours): Temp Pulse Resp BP Pulse Ox 98.8 F 72 18 147/83 95 11/24/18 18:28 11/25/18 00:59 11/25/18 00:59 11/25/18 00:59 11/25/18 00:59 - Medications Medications: Current Medications Aspirin (Ecotrin) 81 mg PO DAILY FISH Enoxaparin Sodium (Lovenox) 40 mg SC DAILY [facility]; Protocol Famotidine (Pepcid) 40 mg PO DAILY [facility] Hydrochlorothiazide (Hydrodiuril) 25 mg PO DAILY [facility] - Labs Labs: 11/24/18 19:00 11/24/18 19:00 PT 11.3 SECONDS (9.4-12.5) 11/24/18 19:00 INR 1.02 11/24/18 19:00 APTT 32.8 Seconds (26.9-38.3) 11/24/18 19:00
[2018-11-25 07:10] LABS: ALB/GLOB RATIO 1.3 (1.1-1.8); ALBUMIN 3.8 g/dL (3.0-4.8); ALT/SGPT 31 U/L (7-56); AST/SGOT 26 U/L (14-36); BLOOD UREA NITROGEN 10 mg/dL (7-21); CALCIUM 8.7 mg/dL (8.4-10.5); GFR NON-AFRICAN AMERICAN > 60; HDL CHOLESTEROL 44 mg/dL (29-60)
[2018-11-25 07:21] LABS: TROPONIN I < 0.01 ng/mL
[2018-11-25 07:29] LABS: LDL CHOLESTEROL 170 mg/dL (0-129)
--- NOTE | 2018-11-25 09:09 | RAD ---
Date of service: 11/24/2018 HISTORY: cp COMPARISON: No prior. TECHNIQUE: 1 view obtained. FINDINGS: LUNGS: No active pulmonary disease. PLEURA: No significant pleural effusion identified, no pneumothorax apparent. CARDIOVASCULAR: No aortic atherosclerotic calcification present. Normal cardiac size. No pulmonary vascular congestion. OSSEOUS STRUCTURES: No significant abnormalities. VISUALIZED UPPER ABDOMEN: Normal. OTHER FINDINGS: None. IMPRESSION: No active disease.
[2018-11-25] MEDS ORDERED: Enoxaparin 40 mg Syringe SC SCH (10:00)
[2018-11-25 10:57] VITALS: O2SAT 96
--- NOTE | 2018-11-25 13:19 | CON ---
DATE OF CONSULTATION: 11/25/2018 CARDIOLOGY CONSULTATION HISTORY: The patient is a 63-year-old woman with no previous cardiac history and no cardiac risk factors, who presents with an episode of transient chest discomfort. The patient is currently chest-pain free. Her past medical history is history of hypertension, no diabetes mellitus, no previous heart history. Her past medical history does include rheumatoid arthritis, which has been treated by a manager route. SOCIAL HISTORY: The patient does not smoke. REVIEW OF SYSTEMS: Fourteen-point review of systems is reviewed in detail. No cardiac symptoms are elicited. PHYSICAL EXAMINATION: GENERAL: The patient is in no acute distress. VITAL SIGNS: Blood pressure 125/72, the heart rate is in the 70s. NECK: Negative JVD. LUNGS: Without rales. CARDIAC: Heart rate S1, S2. EXTREMITIES: Without edema. EKG shows right bundle-branch block. Troponins are negative x3. IMPRESSION: 1. Transient chest pain. 2. No evidence for acute coronary syndrome. 3. History of rheumatoid arthritis. 4. No evidence for acute coronary syndrome. The patient is ambulating without symptoms. PLAN: Given these findings, we will discontinue telemetry today. The patient should undergo a stress test and an echo, which can be done as an outpatient. Zackary Lei MD
[2018-11-25 13:44] VITALS: BP 118/68; PULSE 73; RESP 16; TEMP 98.1
--- NOTE | 2018-11-25 13:54 | CARD ---
APPROVED REPORT Date of service: 11/25/2018 EXAM: Two-dimensional and M-mode echocardiogram with Doppler and color Doppler. INDICATION R/O ACS 2D DIMENSIONS Left Atrium (2D)3.5 (1.6-4.0cm)IVSd0.9 (0.7-1.1cm) LVDd4.6 (3.9-5.9cm)PWd0.9 (0.7-1.1cm) LVDs3.1 (2.5-4.0cm)FS (%) 33.0 % LVEF (%)61.6 (>50%) M-Mode DIMENSIONS Aortic Root2.80 (2.2-3.7cm)Aortic Cusp Exc.1.90 (1.5-2.0cm) Aortic Valve AoV Peak Rktablpd769.0cm/Deana Peak GR.8mmHg Mitral Valve MV E Kychulvr82.1cm/sMV A Zfomfkwd72.1cm/sE/A ratio0.7 TDI E/Lateral E'0.0E/Medial E'0.0 Tricuspid Valve TR Peak [id number]/sRAP [id number] Peak Gr.18mmHg [id number] LEFT VENTRICLE The left ventricle is normal size. There is normal left ventricular wall thickness. The left ventricular function is normal. The left ventricular ejection fraction is within the normal range. There is normal LV segmental wall motion. Transmitral Doppler flow pattern is Grade I-abnormal relaxation pattern. RIGHT VENTRICLE The right ventricle is normal size. There is normal right ventricular wall thickness. The right ventricular systolic function is normal. ATRIA The left atrium size is normal. The right atrium size is normal. AORTIC VALVE The aortic valve is normal in structure. No aortic regurgitation is present. There is no aortic valvular stenosis. MITRAL VALVE The mitral valve is normal in structure. There is no mitral valve regurgitation noted. There is no mitral valve stenosis. TRICUSPID VALVE There is trace tricuspid regurgitation. PULMONIC VALVE There is trace pulmonic valvular regurgitation. GREAT VESSELS The aortic root is normal in size. The IVC is normal in size and collapses >50% with inspiration. PERICARDIAL EFFUSION There is a trace pericardial effusion. <Conclusion> The left ventricle is normal size. There is normal left ventricular wall thickness. The left ventricular function is normal. The left ventricular ejection fraction is within the normal range. There is normal LV segmental wall motion. Transmitral Doppler flow pattern is Grade I-abnormal relaxation pattern. There is trace tricuspid regurgitation.
--- NOTE | 2018-11-25 17:06 | CP.PCM.DIS ---
<KimMorenitakarishma L - Last Filed: 11/25/18 17:03> Provider - Provider Date of Admission: 11/24/18 21:29 Attending physician: Kody English MD Consults: 11/24/18 22:38 Physician Consult Routine Comment: Consulting Provider: Zackary Lei Consulting Physician: Zackary Lei Reason for Consult: ACS rule-out, Hx of RA Time Spent in preparation of Discharge (in minutes): 35 Diagnosis - Discharge Diagnosis (1) Chest pain Status: Resolved (2) Arthritis Status: Chronic Hospital Course - Lab Results Lab Results: Most Recent Lab Values WBC 4.9 10^3/uL (4.5-11.0) 11/25/18 06:20 RBC 4.36 10^6/uL (3.5-6.1) 11/25/18 06:20 Hgb 12.5 g/dL (12.0-16.0) 11/25/18 06:20 Hct 39.1 % (36.0-48.0) 11/25/18 06:20 MCV 89.7 fl (80.0-105.0) 11/25/18 06:20 MCH 28.7 pg (25.0-35.0) 11/25/18 06:20 MCHC 32.0 g/dl (31.0-37.0) 11/25/18 06:20 RDW 13.7 % (11.5-14.5) 11/25/18 06:20 Plt Count 257 10^3/uL (120.0-450.0) 11/25/18 06:20 MPV 10.2 fl (7.0-11.0) 11/25/18 06:20 Neut % (Auto) 42.0 % (50.0-68.0) L 11/25/18 06:20 Lymph % (Auto) 45.7 % (22.0-35.0) H 11/25/18 06:20 [place] % (Auto) 8.3 % (1.0-6.0) H 11/25/18 06:20 Eos % (Auto) 3.4 % (1.5-5.0) 11/25/18 06:20 Baso % (Auto) 0.6 % (0.0-3.0) 11/25/18 06:20 Lymph # (Auto) 2.3 (1.2-3.4) 11/25/18 06:20 [place] # (Auto) 0.4 (0.1-0.6) 11/25/18 06:20 Eos # (Auto) 0.2 (0.0-0.7) 11/25/18 06:20 Baso # (Auto) 0.03 K/mm3 (0.0-2.0) 11/25/18 06:20 Absolute Neuts (auto) 2.07 (1.4-6.5) 11/25/18 06:20 ESR 30 mm/hr (0.0-20.0) H 11/25/18 06:20 PT 11.3 SECONDS (9.4-12.5) 11/24/18 19:00 INR 1.02 11/24/18 19:00 APTT 32.8 Seconds (26.9-38.3) 11/24/18 19:00 Sodium 141 mmol/L (132-148) 11/25/18 06:20 Potassium 3.6 mmol/L (3.6-5.0) 11/25/18 06:20 Chloride 105 mmol/L (98-107) 11/25/18 06:20 Carbon Dioxide 29 mmol/L (21-33) 11/25/18 06:20 Anion Gap 10 (10-20) 11/25/18 06:20 BUN 10 mg/dL (7-21) 11/25/18 06:20 Creatinine 0.5 mg/dl (0.7-1.2) L 11/25/18 06:20 Est GFR ( Amer) > 60 11/25/18 06:20 Est GFR (Non-Af Amer) > 60 11/25/18 06:20 Random Glucose 102 mg/dL (70-110) 11/25/18 06:20 Hemoglobin A1c 6.0 % (4.2-6.5) 11/24/18 19:00 Calcium 8.7 mg/dL (8.4-10.5) 11/25/18 06:20 Phosphorus 4.1 mg/dL (2.5-4.5) 11/25/18 06:20 Magnesium 2.2 mg/dL (1.7-2.2) 11/25/18 06:20 Total Bilirubin 0.4 mg/dL (0.2-1.3) 11/25/18 06:20 AST 26 U/L (14-36) 11/25/18 06:20 ALT 31 U/L (7-56) 11/25/18 06:20 Alkaline Phosphatase 81 U/L (38-126) 11/25/18 06:20 Lactate Dehydrogenase 447 U/L (333-699) 11/24/18 19:00 Total Creatine Kinase 69 U/L (35-230) 11/24/18 19:00 Troponin I < 0.01 ng/mL 11/25/18 06:20 C-Reactive Protein < 5.00 mg/L (0.0-9.9) 11/25/18 06:20 NT-Pro-B Natriuret Pep 43.8 pg/mL (0-450) 11/24/18 19:00 Total Protein 6.7 g/dL (5.8-8.3) 11/25/18 06:20 Albumin 3.8 g/dL (3.0-4.8) 11/25/18 06:20 Globulin 2.9 gm/dL 11/25/18 06:20 Albumin/Globulin Ratio 1.3 (1.1-1.8) 11/25/18 06:20 Triglycerides 145 mg/dL (35-160) 11/25/18 06:20 Cholesterol 230 mg/dL (130-200) H 11/25/18 06:20 LDL Cholesterol Direct 170 mg/dL (0-129) H 11/25/18 06:20 HDL Cholesterol 44 mg/dL (29-60) 11/25/18 06:20 TSH 3rd Generation 4.42 mIU/mL (0.46-4.68) 11/24/18 18:50 Urine Opiates Screen Negative (NEGATIVE) 11/25/18 00:43 Urine Methadone Screen Negative (NEGATIVE) 11/25/18 00:43 Ur Barbiturates Screen Negative (NEGATIVE) 11/25/18 00:43 Ur Phencyclidine Scrn Negative (NEGATIVE) 11/25/18 00:43 Ur Amphetamines Screen Negative (NEGATIVE) 11/25/18 00:43 U Benzodiazepines Scrn Negative (NEGATIVE) 11/25/18 00:43 U Oth Cocaine Metabols Negative (NEGATIVE) 11/25/18 00:43 U Cannabinoids Screen Negative (NEGATIVE) 11/25/18 00:43 - Hospital Course Hospital Course: On admission: Patient is a 63-year-old F with PMH significant for rheumatoid arthritis, hypertension, diverticulosis, and diverticulitis s/p colonoscopy with Dr. Smith (February 2018) who presents to ED with a cc of chest pain x4 days. Patient localizes the pain under her left breast, reports that it is intermittent, lasts a few minutes at a time, and is worse throughout the day. Patient describes the pain as "pressure-like" and non-radiating. Patient denies any provoking factors and/or alleviating factors, however she denies being woken up by chest pain at night. Patient otherwise denies headache, fever, chills, rash, diarrhea, nausea, vomiting, fever, abdominal pain, back pain, and/or lower extremity pain. During hospital stay: EKG showed RBBB. Troponins were negative x3. Cardiology was consulted. Aspirin was administered. Cholesterol was 230 and LDL was 170 on lipid panel. HDL was 44. TSH was within normal limits. Urine drug screen was negative. Patient underwent echocardiogram. Patient is to get stress test outpatient as per cardiology recommendations. Patient was optimized for discharge. Discharge Exam - Additional Findings Additional findings: - Constitutional Appears: No Acute Distress - Head Exam Head Exam: ATRAUMATIC, NORMOCEPHALIC - Eye Exam Eye Exam: EOMI - Respiratory Exam Respiratory Exam: Clear to Auscultation Bilateral, NORMAL BREATHING PATTERN. absent: Accessory Muscle Use, Chest Wall Tenderness, Decreased Breath Sounds, Rales, Rhonchi, Wheezes, Respiratory Distress - Cardiovascular Exam Cardiovascular Exam: REGULAR RHYTHM, +S1, +S2. absent: Bradycardia, Tachycardia - GI/Abdominal Exam GI & Abdominal Exam: Normal Bowel Sounds, Soft. absent: Tenderness - Extremities Exam Extremities exam: Normal capillary refill, normal inspection, pedal pulses present - Neurological Exam Neurological exam: Alert, CN II-XII Intact, Oriented x3 - Skin Skin Exam: Dry, Intact, Normal Color, Warm Discharge Plan - Follow Up Plan Condition: STABLE Disposition: HOME/ ROUTINE Patient education suggested?: Yes Instructions: Chest Pain (DC) Additional Instructions: Follow up with your primary medical doctor within 3-5 days. Also follow up with Dr. Lei comprehensive ophthalmologist for outpatient echocardiogram and stress test. Resume your home medications as prescribed Return to ED if symptoms return or worsen Referrals: Maria Del Carmen Herrera MD [Family Provider] - Zackary Lei MD [Staff Provider] - <Dom Theodore - Last Filed: 11/25/18 18:10> Provider - Provider Date of Admission: 11/24/18 21:29 Attending physician: Kody English MD Consults: 11/24/18 22:38 Physician Consult Routine Comment: Consulting Provider: Zackary Lei Consulting Physician: Zacakry Lei Reason for Consult: ACS rule-out, Hx of RA Hospital Course - Lab Results Lab Results: Most Recent Lab Values WBC 4.9 10^3/uL (4.5-11.0) 11/25/18 06:20 RBC 4.36 10^6/uL (3.5-6.1) 11/25/18 06:20 Hgb 12.5 g/dL (12.0-16.0) 11/25/18 06:20 Hct 39.1 % (36.0-48.0) 11/25/18 06:20 MCV 89.7 fl (80.0-105.0) 11/25/18 06:20 MCH 28.7 pg (25.0-35.0) 11/25/18 06:20 MCHC 32.0 g/dl (31.0-37.0) 11/25/18 06:20 RDW 13.7 % (11.5-14.5) 11/25/18 06:20 Plt Count 257 10^3/uL (120.0-450.0) 11/25/18 06:20 MPV 10.2 fl (7.0-11.0) 11/25/18 06:20 Neut % (Auto) 42.0 % (50.0-68.0) L 11/25/18 06:20 Lymph % (Auto) 45.7 % (22.0-35.0) H 11/25/18 06:20 [place] % (Auto) 8.3 % (1.0-6.0) H 11/25/18 06:20 Eos % (Auto) 3.4 % (1.5-5.0) 11/25/18 06:20 Baso % (Auto) 0.6 % (0.0-3.0) 11/25/18 06:20 Lymph # (Auto) 2.3 (1.2-3.4) 11/25/18 06:20 [place] # (Auto) 0.4 (0.1-0.6) 11/25/18 06:20 Eos # (Auto) 0.2 (0.0-0.7) 11/25/18 06:20 Baso # (Auto) 0.03 K/mm3 (0.0-2.0) 11/25/18 06:20 Absolute Neuts (auto) 2.07 (1.4-6.5) 11/25/18 06:20 ESR 30 mm/hr (0.0-20.0) H 11/25/18 06:20 PT 11.3 SECONDS (9.4-12.5) 11/24/18 19:00 INR 1.02 11/24/18 19:00 APTT 32.8 Seconds (26.9-38.3) 11/24/18 19:00 Sodium 141 mmol/L (132-148) 11/25/18 06:20 Potassium 3.6 mmol/L (3.6-5.0) 11/25/18 06:20 Chloride 105 mmol/L (98-107) 11/25/18 06:20 Carbon Dioxide 29 mmol/L (21-33) 11/25/18 06:20 Anion Gap 10 (10-20) 11/25/18 06:20 BUN 10 mg/dL (7-21) 11/25/18 06:20 Creatinine 0.5 mg/dl (0.7-1.2) L 11/25/18 06:20 Est GFR ( Amer) > 60 11/25/18 06:20 Est GFR (Non-Af Amer) > 60 11/25/18 06:20 Random Glucose 102 mg/dL (70-110) 11/25/18 06:20 Hemoglobin A1c 6.0 % (4.2-6.5) 11/24/18 19:00 Calcium 8.7 mg/dL (8.4-10.5) 11/25/18 06:20 Phosphorus 4.1 mg/dL (2.5-4.5) 11/25/18 06:20 Magnesium 2.2 mg/dL (1.7-2.2) 11/25/18 06:20 Total Bilirubin 0.4 mg/dL (0.2-1.3) 11/25/18 06:20 AST 26 U/L (14-36) 11/25/18 06:20 ALT 31 U/L (7-56) 11/25/18 06:20 Alkaline Phosphatase 81 U/L (38-126) 11/25/18 06:20 Lactate Dehydrogenase 447 U/L (333-699) 11/24/18 19:00 Total Creatine Kinase 69 U/L (35-230) 11/24/18 19:00 Troponin I < 0.01 ng/mL 11/25/18 06:20 C-Reactive Protein < 5.00 mg/L (0.0-9.9) 11/25/18 06:20 NT-Pro-B Natriuret Pep 43.8 pg/mL (0-450) 11/24/18 19:00 Total Protein 6.7 g/dL (5.8-8.3) 11/25/18 06:20 Albumin 3.8 g/dL (3.0-4.8) 11/25/18 06:20 Globulin 2.9 gm/dL 11/25/18 06:20 Albumin/Globulin Ratio 1.3 (1.1-1.8) 11/25/18 06:20 Triglycerides 145 mg/dL (35-160) 11/25/18 06:20 Cholesterol 230 mg/dL (130-200) H 11/25/18 06:20 LDL Cholesterol Direct 170 mg/dL (0-129) H 11/25/18 06:20 HDL Cholesterol 44 mg/dL (29-60) 11/25/18 06:20 TSH 3rd Generation 4.42 mIU/mL (0.46-4.68) 11/24/18 18:50 Urine Opiates Screen Negative (NEGATIVE) 11/25/18 00:43 Urine Methadone Screen Negative (NEGATIVE) 11/25/18 00:43 Ur Barbiturates Screen Negative (NEGATIVE) 11/25/18 00:43 Ur Phencyclidine Scrn Negative (NEGATIVE) 11/25/18 00:43 Ur Amphetamines Screen Negative (NEGATIVE) 11/25/18 00:43 U Benzodiazepines Scrn Negative (NEGATIVE) 11/25/18 00:43 U Oth Cocaine Metabols Negative (NEGATIVE) 11/25/18 00:43 U Cannabinoids Screen Negative (NEGATIVE) 11/25/18 00:43 Attending/Attestation - Attestation I have personally seen and examined this patient.: Yes I have fully participated in the care of the patient.: Yes I have reviewed all pertinent clinical information, including history, physical exam and plan: Yes Notes (Text): 11/25/18 18:08 Medical record note made by the resident after discussion with my direction and input after the patient was personally seen and examined by me. I have reviewed the chart and agree that the record accurately reflects by personal performance of the history, physical exam, data review, and medical decision-making, in the course for the patient. I have also personally directed the plan of care. 63-year-old F with PMH significant for rheumatoid arthritis, hypertension, diverticulosis, and diverticulitis s/p colonoscopy with Dr. Smith (February 2018) was admitted with atypical chest pain.EKG was negative for ischemic changes.Serial troponins were normal. Echo showed normal systolic function. Patient was evaluated by cardiology and out patient stress test is recommended. She will be discharged home and will follow up with PCP and cardiology. Management plan was discussed in detail with patient. Education was provided. 11/25/18 18:09
--- NOTE | 2018-11-25 23:51 | CARD ---
APPROVED REPORT Date of service: 11/25/2018 EKG Measurement Heart [id number] 140P46 [id number] <Conclusion> Normal sinus rhythm Right bundle branch block Abnormal ECG
--- NOTE | 2018-11-26 00:02 | CARD ---
APPROVED REPORT Date of service: 11/24/2018 EKG Measurement Heart [id number] <Conclusion> Normal sinus rhythm Right bundle branch block Abnormal ECG
== END 2018-11-25 15:28 | disposition home or self-care (01) ==
LOC: ED 18:16 → ERH 21:29 → 2RNO 11-25 11:02
PROVIDERS: ADMIT Internal Medicine; ATTEND Internal Medicine
DX: R07.89 Other chest pain (principal); M06.9 Rheumatoid arthritis, unspecified; I10 Essential (primary) hypertension; I45.10 Unspecified right bundle-branch block; M19.90 Unspecified osteoarthritis, unspecified site; Z87.440 Personal history of urinary (tract) infections
CPT/HCPCS: 71045; 80053; 80061; 82550; 83036; 83615; 83735; 83880; 84100; 84443; 84484; 85025; 85610; 85651; 85730; 86140; 93005; 93306; 96372; 99285; G0378; G0480; J1650

== ENCOUNTER 2018-12-09 06:40 | Outpatient (CLI) | payer MEDICARE, MEDICAID | END 2018-12-09 06:41 | disposition home or self-care (01) | LOC: CARDIO 06:40 ==

== ENCOUNTER 2018-12-20 07:04 | Day surgery (SDC) | payer MEDICARE, MEDICAID ==
[2018-12-19 10:32] VITALS: BMI 29.2
[2018-12-20 07:26] LABS: BASO # 0.04 K/mm3 (0.0-2.0); BASO % 0.7 % (0.0-3.0); EOS # 0.2 (0.0-0.7); EOS % 3.8 % (1.5-5.0); HEMOGLOBIN 13.3 g/dL (12.0-16.0); LYMPH # 2.3 (1.2-3.4); LYMPH % 39.8 % (22.0-35.0); MEAN CELL VOLUME 90.3 fl (80.0-105.0); MEAN CORPUSCULAR HEMOGLOBIN 29.4 pg (25.0-35.0); MEAN CORPUSCULAR HGB CONC 32.6 g/dl (31.0-37.0); MEAN PLATELET VOLUME 10.5 fl (7.0-11.0); MONO # 0.5 (0.1-0.6); RBC 4.52 10^6/uL (3.5-6.1); RED CELL DISTRIBUTION WIDTH 13.8 % (11.5-14.5); WHITE BLOOD COUNT 5.7 10^3/uL (4.5-11.0)
[2018-12-20 07:32] LABS: INR 1.01; PARTIAL THROMBOPLASTIN TIME 34.9 Seconds (26.9-38.3); PROTHROMBIN TIME 11.4 SECONDS (9.4-12.5)
[2018-12-20 07:36] LABS: BLOOD UREA NITROGEN 12 mg/dL (7-21); CALCIUM 9.1 mg/dL (8.4-10.5); GFR NON-AFRICAN AMERICAN > 60; HDL CHOLESTEROL 54 mg/dL (29-60)
[2018-12-20 07:47] LABS: LDL CHOLESTEROL 171 mg/dL (0-129)
[2018-12-20] MEDS ORDERED: Iodixanol 320 MG/ML 200 ML BOTTLE IV ONE (09:55)
[2018-12-20] MEDS ORDERED: Iodixanol 320 MG/ML 100 ML BOTTLE IV ONE (09:55)
[2018-12-20] MEDS ORDERED: Iohexol 350mgl/ml 50 ML ONE (09:55)
[2018-12-20] MEDS ORDERED: Nitroglycerin 50mg in D5W 50 MG/250 ML BOTTLE IV ONE (09:55)
[2018-12-20] MEDS ORDERED: Lidocaine PF 2% (5 ml) Inj (For Cardiac Arrhy) ONE (09:55)
[2018-12-20] MEDS ORDERED: Midazolam 2 MG/2 ML VIAL ONE (10:41)
[2018-12-20] MEDS ORDERED: Sodium Chloride 0.9% 1,000 ML IV SCH (11:30)
[2018-12-20 11:41] VITALS: TEMP 97.6
--- NOTE | 2018-12-20 13:42 | CARDCATH ---
PROCEDURE DATE: 12/20/2018 HISTORY: The patient is a 63-year-old woman who presented with symptoms consistent with angina and myocardial infarction was ruled out. She suffers from hypercholesterolemia. A stress test was performed, which revealed an ischemic area in the apical region. Because of this, cardiac catheterization was recommended. PROCEDURE: Left heart catheterization with coronary arteriography and left ventriculogram. DESCRIPTION OF PROCEDURE: The right femoral artery was cannulated with a 6-Kinyarwanda sheath. There were no complications. I performed moderate sedation which included the presence of an independent trained observer that assisted in monitoring the patient's level of consciousness and physiologic status. After administration of Versed and fentanyl, my intra-service time was 30 minutes. The findings on catheterization revealed left main artery was unremarkable. The patient had a codominant circulation. The RCA was within normal limits. The left main artery is unremarkable. The LAD and diagonal vessels were within normal limits. The circumflex artery was free of significant disease. LV function was visualized in the PALM projection. In the PALM projection, wall motion is within normal limits. AngioSeal was used to close the femoral artery site. The patient tolerated the procedure well. In summary, the procedure revealed normal coronary arteries with normal LV function. Given these findings, the patient's chest pain is not related to coronary ischemia. I have discussed this with the patient in detail. Her hypercholesterolemia should be treated and the patient's should undergo a cardiac risk reduction program. Zackary Lei MD
[2018-12-20 14:40] VITALS: O2SAT 97
[2018-12-20 16:12] VITALS: BP 130/85; PULSE 72; RESP 16
--- NOTE | 2018-12-20 18:27 | CARD ---
APPROVED REPORT Date of service: 12/20/2018 EKG Measurement Heart [id number] DC 140P44 [id number] <Conclusion> Normal sinus rhythm Right bundle branch block Abnormal ECG
== END 2018-12-20 17:30 | disposition home or self-care (01) ==
LOC: CATH 07:04
PROVIDERS: ATTEND Internal Medicine Cardiovascular Disease
DX: R07.9 Chest pain, unspecified (principal); I10 Essential (primary) hypertension; E78.00 Pure hypercholesterolemia, unspecified; I45.10 Unspecified right bundle-branch block; I25.9 Chronic ischemic heart disease, unspecified; M06.9 Rheumatoid arthritis, unspecified
CPT/HCPCS: 36415; 80048; 80061; 85025; 85610; 85730; 86850; 86900; 93005; 93458; 99152; C1760; C1769; C2629; J1644; J2250; J3010; J7030; Q9966